=== PATIENT | female | born 1955 | race Caucasian/White ===

== ENCOUNTER 2019-08-31 08:45 | Outpatient (CLI) | payer BC, SELFPAY ==
--- NOTE | 2019-08-31 08:56 | MM_ITS ---
WS: [id number] BILATERAL SCREENING DIGITAL MAMMOGRAM WITH CAD HISTORY: SCREENING COMPARISON: 08/02/2018 and 07/29/2017 Bilateral CC and MLO views submitted. Computer aided detection analyzed. Breast composition: The breasts are heterogeneously dense, which may obscure small masses. No suspici ous masses, microcalcifications or architectural distortion. Benign lymph nodes in the LEFT breast ar e stable. No suspicious mass or calcification. MM/[id number] IMPRESSION: BI-RADS: 2-Benign FOLLOW UP: 1 Year Follow-up
== END 2019-08-31 08:46 | disposition home or self-care (01) ==
LOC: RADSHAW 08:55
PROVIDERS: Family Provider Electrodiagnostic Medicine; PCP Electrodiagnostic Medicine; Visit Provider Electrodiagnostic Medicine
DX: Z12.31 Encounter for screening mammogram for malignant neoplasm of breast (principal)
CPT/HCPCS: 77067

== ENCOUNTER 2020-10-21 08:44 | Outpatient (CLI) | payer MEDICARE, SELFPAY ==
--- NOTE | 2020-10-21 08:52 | MM_ITS ---
WS: [id number] BILATERAL DIGITAL SCREENING MAMMOGRAPHY WITH CAD CLINICAL INFORMATION: SCREENING HISTORY: Screening mammogram. No current complaints. COMPARISON: August 2019 TECHNIQUE: Bilateral CC and MLO views. FINDINGS: The breasts are composed of heterogeneous fibroglandular density tissue, which can limit the detectio n of small underlying mass lesions. No suspicious mass, asymmetry, calcifications, or architectural d istortion. No evidence of malignancy. Incidental intramammary lymph nodes left breast. MM/[place] [id number] IMPRESSION: BI-RADS: 2-Benign FOLLOW UP: 1 Year Follow-up Recommend return to annual screening mammography.
== END 2020-10-21 08:45 | disposition home or self-care (01) ==
LOC: RADSHAW 08:50
PROVIDERS: Family Provider Electrodiagnostic Medicine; PCP Electrodiagnostic Medicine; Visit Provider Electrodiagnostic Medicine
DX: Z12.31 Encounter for screening mammogram for malignant neoplasm of breast (principal)
CPT/HCPCS: 77067

== ENCOUNTER 2021-12-14 08:33 | Outpatient (CLI) | payer MEDICARE, SELFPAY ==
--- NOTE | 2021-12-14 08:45 | MM_ITS ---
WS: [id number] BILATERAL SCREENING DIGITAL BREAST TOMOSYNTHESIS MAMMOGRAM WITH CAD HISTORY: SCREENING COMPARISON: 10/21/2020 and 08/31/2019 Bilateral CC and MLO views with tomosynthesis and synthetic mammography submitted. Computer aided det ection analyzed. Breast composition: There are scattered areas of fibroglandular density. No suspicious masses, microc alcifications or architectural distortion. MM/[place] [id number] IMPRESSION: BI-RADS: 1-Negative FOLLOW UP: 1 Year Follow-up
== END 2021-12-14 08:34 | disposition home or self-care (01) ==
LOC: RAD 08:35
PROVIDERS: Family Provider Electrodiagnostic Medicine; PCP Electrodiagnostic Medicine; Visit Provider Electrodiagnostic Medicine
DX: Z12.31 Encounter for screening mammogram for malignant neoplasm of breast (principal)
CPT/HCPCS: 77063; 77067

== ENCOUNTER 2022-12-22 11:55 | Outpatient (CLI) | payer MEDICARE, SELFPAY ==
--- NOTE | 2022-12-22 12:09 | MM_ITS ---
WS: [id number] VIEWS: MLO and CC views both breasts. 3D digital tomosynthesis is also included in this exam. Comparison made with prior exam of 06/15/2016, 07/29/2017, 08/02/2018, 08/31/2019, 10/21/2020, 12/14/2021.. Findings: There was no sign of mass, architectural distortion or suspicious calcification in either breast. Th ere are scattered areas of fibroglandular density. MM/[place] [id number] Impression: BI-RADS: 2 Benign finding FOLLOW-UP: 1 Year Follow-up This mammogram was also analyzed by the Computer Aided Detection System R2 Imag e Employment Coach.
== END 2022-12-22 11:56 | disposition home or self-care (01) ==
PROVIDERS: PCP Electrodiagnostic Medicine; Visit Provider Electrodiagnostic Medicine
DX: Z12.31 Encounter for screening mammogram for malignant neoplasm of breast (principal)
CPT/HCPCS: 77063; 77067

== ENCOUNTER 2023-06-10 16:56 | Emergency (ER) | payer MEDICARE, SELFPAY ==
[2023-06-10 16:59] VITALS: BP 159/84; PULSE 89; RESP 18; TEMP 36.8; O2SAT 96; BMI 23.6
--- NOTE | 2023-06-10 17:54 | W.ED.GENADLT ---
HPI - General Adult General: Chief complaint: General Medical Stated complaint: Bp high Time Seen by Provider: 06/10/23 17:20 History of Present Illness: Patient is a 67-year-old female with a past medical history significant for osteoarthritis, hyperglycemia, and hyperlipidemia who presents to the emergency department for evaluation of high blood pressure. Patient reports that she has been monitoring her blood pressure over the last month. Patient states that today her blood pressure was reading 180/100 and then again later 203/100. Patient was evaluated by her primary care provider who started her on lisinopril 5 mg. Patient reports that she took her blood pressure medication this morning and her blood pressure in the emergency department reads 159/84. Patient currently denies headache, lightheadedness, dizziness, chest pain, shortness of breath, palpitations, cough, congestion, numbness, tingling, extremity weakness, visual disturbances, or any other associated symptoms. Patient is currently completely asymptomatic and is just concerned about her blood pressure. No other complaints at this time. Associated symptoms: Deny chest pain, confusion, dyspnea, headache(s), nausea, rash, palpitations, syncope or vomiting Review of Systems General: Reports: 10 or more systems reviewed and unremarkable except in HPI and below Const: Denies: fever(s), chills or body aches Eyes: Denies: change in vision, blurry vision, blind spots, eye discharge or eye redness ENMT: Denies: throat pain, hoarseness, nasal discharge or nasal congestion Card: Denies: chest pain, palpitations, lightheadedness, syncope or dyspnea on exertion Resp: Denies: dyspnea, productive cough, non-productive cough or wheezing GI: Denies: abdominal pain, nausea, vomiting, diarrhea or constipation : Denies: flank pain, dysuria, urinary urgency or hematuria Musc: Denies: neck pain or extremity pain Skin/Breast: Denies: rash Neuro: Denies: headache(s), numbness in extremities, dizziness, vertigo or confusion Psych: Denies: anxiety PFS ED PFSH: Medical History (Updated 06/10/23 @ 19:37 by BISHOP Rodriguez) Generalized osteoarthritis Hard of hearing Hyperglycemia Hyperlipidemia Surgical History (Updated 02/18/22 @ 10:37 by Jonathan Judge NP) No history of previous surgery Family History (Updated 02/18/22 @ 10:38 by Jonathan Judge NP) Mother Cancer, Onset Age: 60 Breast Father Cancer Colon Social History (Updated 02/18/22 @ 10:39 by Jonathan Judge NP) Smoking and tobacco/nicotine status: never used tobacco/nicotine Alcohol intake: current Alcohol intake frequency: holidays/special occasions only Physical Exam Const: COMMON NORMALS: no acute distress, average body habitus, patient oriented x3, no limitations and alert HENMT: COMMON NORMALS: normocephalic, atraumatic, hearing grossly normal bilaterally and moist oral mucous membranes HEAD & SCALP: normocephalic and atraumatic Eye: COMMON NORMALS: Equal, round and reactive pupils present, EOMs intact bilaterally and conjunctivae normal CONJUNCTIVA: Yes conjunctivae normal PUPIL: Yes Equal, round and reactive pupils present Neck/C-Spine: COMMON NORMALS: full ROM Chest: COMMONS NORMALS: normal inspection of the chest Resp: COMMON NORMALS: normal respiratory effort, No retractions, No use of accessory muscles and clear to auscultation bilaterally AUSCULTATION: clear to auscultation bilaterally Cardio: COMMON NORMALS: regular rate, regular rhythm, No gallops present (Cardio), No clicks present (Cardio), No murmurs present (Cardio) and No rub (Cardio) RATE: regular rate RHYTHM: regular rhythm GI: COMMON NORMALS: Normal to inspection, nondistended, normoactive bowel sounds present, Soft to palpation and non-tender PALPATION: Yes Soft to palpation Extremity: OTHER: Patient has full passive and active range of motion in the bilateral upper and lower extremities. Neuro: COMMON NORMALS: patient oriented x3 SENSORIUM/ORIENTATION: Yes alert OTHER: Sensation intact to the bilateral upper and lower extremities. Skin: COMMON NORMALS: no rashes or lesions noted GENERAL SKIN EXAM: no rashes or lesions noted Course Vital Signs: Vital signs: Vital Signs Temperature 98.3 F 06/10/23 16:59 Pulse Rate 60 06/10/23 19:13 Respiratory Rate 16 06/10/23 19:13 Blood Pressure 149/69 06/10/23 19:13 Pulse Oximetry 97 06/10/23 19:13 Oxygen Delivery Me thod Room Air 06/10/23 19:13 [facility] - General Adult Medical Decision Making Patient is a 67-year-old female with a past medical history significant for osteoarthritis, hyperglycemia, and hyperlipidemia who presents to the emergency department for evaluation of high blood pressure. On physical examination patient is nontoxic and in no acute distress. Vital signs remained stable throughout the ED course. Blood pressure remained normal in the emergency department. Patient is currently completely asymptomatic. Patient was asymptomatic throughout the day. EKG sinus rhythm with nonspecific ST changes. No prior EKG for comparison. Chest x-ray showed no acute cardiopulmonary pathology. Based off history and physical examination I do not believe the patient symptoms are emergent and warrant further emergent evaluation at this time. Patient was just started on lisinopril 5 mg today. Patient was informed that it will take some time for the lisinopril to lower her blood pressure. See handout over generalized instructions. Continue to take the lisinopril as prescribed. Increase oral hydration. Continue to monitor your blood pressure. Call your primary care provider tomorrow with an update of your symptoms and to schedule appointment for further management/evaluation. Return to the emergency department in the next 12 to 24 hours for any rapid or worsening symptoms to include but not limited to chest pain, shortness of breath, palpitations, lightheadedness, dizziness, headache, visual disturbances, extremity weakness, or as needed. I discussed patient's history, exam, and all findings with Dr. Forrest in the emergency department who agreed my assessment and plan. He did not feel the patient required admission or further evaluation at this time. Patient stated understanding of all discharge instructions and was agreeable to plan of care. Differential Diagnosis Differential diagnosis includes but is not limited to acute coronary syndrome, hypertensive urgency, hypertensive emergency, hypertensive encephalopathy Lab Data Radiology Impressions Chest X-Ray 06/10/23 18:01 IMPRESSION: No acute findings. All radiology interpretation(s) finalized by discharge Discharge Plan Discharge Patient Disposition: Home Clinical Impression: BP (high blood pressure) Condition: Stable Prescriptions: No Action Shingrix Adjuvant Component-PF Suspension 0.5 ml IM ONCE Qty: 0.5 1RF atorvastatin 40 mg tablet 40 mg PO DAILY Discharge Orders: Discharge ED (Routine); Ordered 06/10/23 Ordered By: Jorge Poole Referrals: Allan Herring DO [Primary Care Provider] - Patient Instructions: Hypertension (ED) Activity Restrictions/Additional Instructions: See handout over generalized instructions. Continue to take the lisinopril as prescribed. Increase oral hydration. Continue to monitor your blood pressure. Call your primary care provider tomorrow with an update of your symptoms and to schedule appointment for further management/evaluation. Return to the emergency department in the next 12 to 24 hours for any rapid or worsening symptoms to include but not limited to chest pain, shortness of breath, palpitations, lightheadedness, dizziness, headache, visual disturbances, extremity weakness, or as needed. Coding Level of Care Code ED Insights Strategist for Otilia Slaughter
--- NOTE | 2023-06-10 18:01 | XRR_ITS ---
PROCEDURE INFORMATION: Exam: XR Chest Exam date and time: 06/10/2023 6:02 PM Age: 67 years old Clinical indication: Other: Palpitations TECHNIQUE: Imaging protocol: Radiologic exam of the chest. Views: 1 view. COMPARISON: No relevant prior studies available. FINDINGS: Lungs: Unremarkable. No consolidation. Pleural spaces: Unremarkable. No pleural effusion. No pneumothorax. Heart/Mediastinum: Unremarkable. No cardiomegaly. Bones/joints: Unremarkable. XR/XR chest 1V portable [id number] IMPRESSION: No acute findings.
--- NOTE | 2023-06-10 18:01 | ECG_ITS ---
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 Measurements Intervals [place] Rate: 72 P: 43 KS: 156 QRS: -4 QRSD: 95 T: 217 QT: 430 QTc: 473 Interpretive Statements SINUS RHYTHM POSSIBLE LEFT ATRIAL ENLARGEMENT [-0.1mV P-WAVE IN V1/V2] INCOMPLETE RIGHT BUNDLE BRANCH BLOCK [90+ ms QRS DURATION, TERMINAL R IN V1/V2, 40+ ms S IN I/aVL/V4/V5/V6] LEFT VENTRICULAR HYPERTROPHY AND ST-T CHANGE [VOLTAGE CRITERIA PLUS ST/T ABNORMALITY] No previous ECG available for comparison Electronically Signed On 06-11-2023 15:15:09 CERTIFIED MEDICINE AIDE by Estefani Vidal M.D. [email or web address]
[2023-06-10 19:13] VITALS: BP 149/69; PULSE 60; RESP 16; O2SAT 97
== END 2023-06-10 19:40 | disposition home or self-care (01) ==
PROVIDERS: Emergency Provider Physician Assistant; PCP Electrodiagnostic Medicine
DX: I10 Essential (primary) hypertension (principal); E78.5 Hyperlipidemia, unspecified
CPT/HCPCS: 71045; 93005; 99284

== ENCOUNTER 2024-01-02 07:57 | Outpatient (CLI) | payer MEDICARE, SELFPAY ==
--- NOTE | 2024-01-02 08:03 | MM_ITS ---
WS: [id number] BILATERAL SCREENING DIGITAL TOMOSYNTHESIS MAMMOGRAM WITH CAD HISTORY: SCREENING COMPARISON: 12/22/2022, 12/14/2021 Bilateral CC and MLO views with tomosynthesis and synthetic mammography submitted. Computer aided det ection analyzed. Breast composition: There are scattered areas of fibroglandular density. No suspicious masses, microc alcifications or architectural distortion. Multiple small well rounded masses within each breast are stable and probably lymph nodes. No suspicious mass or calcification. MM/[place] [id number] IMPRESSION: BI-RADS: 2-Benign FOLLOW UP: 1 Year Follow-up
== END 2024-01-02 07:58 | disposition home or self-care (01) ==
LOC: RAD 07:57
PROVIDERS: PCP Electrodiagnostic Medicine; Visit Provider Electrodiagnostic Medicine
DX: Z12.31 Encounter for screening mammogram for malignant neoplasm of breast (principal); R92.323 Mammographic fibroglandular density, bilateral breasts
CPT/HCPCS: 77063; 77067

== ENCOUNTER 2025-01-02 14:15 | Outpatient (CLI) | payer MEDICARE, SELFPAY ==
--- NOTE | 2025-01-02 14:17 | MM_ITS ---
WS: [id number] BILATERAL 3D TOMOSYNTHESIS DIGITAL SCREENING MAMMOGRAPHY WITH CAD CLINICAL INFORMATION: SCREENING HISTORY: Screening mammogram. No current complaints. COMPARISON: 2023 TECHNIQUE: Bilateral CC and MLO views. FINDINGS: Scattered fibroglandular densities bilaterally. No suspicious focal mass, asymmetry, calcifications, or architectural distortion. No evidence of malignancy. MM/MM scr BI tomosynthesis [id number] IMPRESSION: DENSITY: There are scattered areas of fibroglandular density. BI-RADS: 1 - Negative. FOLLOW UP: 1 Year Follow-up Recommend return to annual screening mammography.
== END 2025-01-02 14:16 | disposition home or self-care (01) ==
LOC: RAD 14:17
PROVIDERS: PCP Electrodiagnostic Medicine; Visit Provider Electrodiagnostic Medicine
DX: Z12.31 Encounter for screening mammogram for malignant neoplasm of breast (principal); R92.323 Mammographic fibroglandular density, bilateral breasts
CPT/HCPCS: 77063; 77067

== ENCOUNTER 2025-05-03 10:52 | Inpatient (IN) | payer MEDICARE, SELFPAY ==
[2025-05-03] VITALS (12 sets, daily range): BP systolic 135–194; BP diastolic 77–100; PULSE 60–93; RESP 12–21; TEMP 36.4–37.1; O2SAT 91–100; BMI 23.2
--- NOTE | 2025-05-03 10:53 | XRR_ITS ---
PROCEDURE INFORMATION: Exam: XR Left Hip Exam date and time: 05/03/2025 11:04 AM Age: 69 years old Clinical indication: Injury or trauma; Fall; Blunt trauma (contusions or hematomas); Left; Hip; Additional info: L hip pain fall TECHNIQUE: Imaging protocol: Radiologic exam of the left hip. Views: 2 or 3 views hip with pelvis when performed. COMPARISON: CR XR hip LT 2-3V wo/w pel* [id number] 02/28/2025 12:58 PM FINDINGS: Bones/joints: There is an impacted intertrochanteric fracture of the left hip. There is a mottled somewhat mixed lytic pattern throughout the intertrochanteric region concerning for underlying bone lesion and pathologic fracture. The femoral heads are located. There is mild bilateral hip degenerative osteoarthritis. Pubic symphysis and SI joints are intact. Soft tissues: Unremarkable. XR/XR hip LT 2-3V wo/w pel* [id number] IMPRESSION: Impacted intertrochanteric fracture of the left hip with radiographic concern for underlying bone lesion and pathologic fracture. Consider follow-up CT for further characterization for possible bone lesion.
[2025-05-03] MEDS: fentaNYL 50 mcg/mL INJ 2mL IVP (11:02)
[2025-05-03] MEDS: HYDROmorphone 0.5 MG/0.5 ML INJ IVP ×2 (11:24→12:20)
--- NOTE | 2025-05-03 11:26 | ECG_ITS ---
[facility] Test Date: 2025-05-03 Pat Name: Cassy Culp Department: Room: Gender: Female Milk Tester: : 1955 Requested By: Hao Seals Order Number: [id number] Reading MD: ISABELL MCKEON Measurements Intervals [place] Rate: 64 P: 73 MD: 148 QRS: 21 QRSD: 89 T: -17 QT: 413 QTc: 428 Interpretive Statements SINUS RHYTHM POSSIBLE RIGHT VENTRICULAR CONDUCTION DELAY [RSR (QR) IN V1/V2] PROBABLE SEPTAL MYOCARDIAL INFARCTION , PROBABLY OLD [35 ms Q WAVE IN V1/V2] MODERATE T-WAVE ABNORMALITY, CONSIDER ANTEROLATERAL ISCHEMIA [-0.1+ mV T-WAVE IN V3-V6] Compared to ECG 06/10/2023 18:01:39 Myocardial infarct finding now present T-wave abnormality now present Possible ischemia now present Incomplete right bundle-branch block no longer present Left ventricular hypertrophy no longer present ST (T wave) deviation no longer present Electronically Signed On 05-05-2025 23:13:37 CDT by ISABELL MCKEON [email or web address]
--- NOTE | 2025-05-03 11:26 | XRR_ITS ---
PROCEDURE INFORMATION: Exam: XR Chest Exam date and time: 05/03/2025 11:24 AM Age: 69 years old Clinical indication: Cough and dyspnea; Lt hip pain post fall today; Additional info: Dyspnea/cough TECHNIQUE: Imaging protocol: Radiologic exam of the chest. Views: 1 view. COMPARISON: CR (CHEST, ) 06/10/2023 6:02 PM FINDINGS: Lungs: Unremarkable. No consolidation. Pleural spaces: Unremarkable. No pleural effusion. No pneumothorax. Heart/Mediastinum: Unremarkable. No cardiomegaly. Bones/joints: Unremarkable. XR/XR chest 1V portable [id number] IMPRESSION: No acute process or interval change
--- NOTE | 2025-05-03 11:34 | ED_ITS ---
HPI - Extremity Problem 2 General: Chief complaint: Extremity Injury, Lower Stated complaint: fall - left hip pain Time Seen by Provider: 05/03/25 10:53 History of Present Illness: 69-year-old female presents to the emerg ency room with complaints of left hip pain. Patient was at physical therapy and getting off a table and fell injured her left hip. She had pain with the hip previously. She denies any other injuries she is awake and alert. Denies chest pain shortness of breath or abdominal pain Associated symptoms: Deny chest pain, fever(s) or rash Related Data Home Medications ?Medication ?Instructions ?Recorded ?Confirmed lisinopril 2.5 mg tablet 2.5 mg PO DAILY 05/03/2505/18 Previous Rx's ?Medication ?Instructions ?Recorded atorvastatin 40 mg tablet 40 mg PO DAILY #90 tabs 01/15 Allergies Allergy/AdvReac Type Severity Reaction Status Date / Time No Known Allergies Allergy Unverified 08/16/23 10:33 Review of Systems 2 Const: Denies: fever(s) or chills Card: Denies: chest pain Resp: Denies: dyspnea GI: Denies: abdominal pain : Denies: dysuria, urinary frequency or urinary urgency Musc: Reports: joint pain; Denies: neck pain or back pain Skin/Breast: Denies: rash PFSH ED 2 PFSH: Medical History Generalized osteoarthritis Hard of hearing Hyperglycemia Hyperlipidemia Surgical History No history of previous surgery Family History Mother Cancer, Onset Age: 60 Breast Father Cancer Colon Social History Smoking and tobacco/nicotine status: never used tobacco/nicotine Alcohol intake: current Alcohol intake frequency: holidays/special occasions only Physical Exam 2 Const: GENERAL APPEARANCE: cooperative ORIENTATION/CONSCIOUSNESS: Yes awake, Yes oriented to person, Yes oriented to place and Yes oriented to time HENMT: COMMON NORMALS: normocephalic, atraumatic and hearing grossly normal bilaterally HEAD & SCALP: normocephalic and atraumatic Resp: COMMON NORMALS: normal respiratory effort, No retractions, No use of accessory muscles and clear to auscultation bilaterally AUSCULTATION: clear to auscultation bilaterally Cardio: COMMON NORMALS: regular rate, regular rhythm and No murmurs present (Cardio) RATE: regular rate RHYTHM: regular rhythm GI: COMMON NORMALS: Soft to palpation and No hepatosplenomegaly present A USCULTATION: Yes normoactive bowel sounds PALPATION: Yes Soft to palpation, No Tenderness to palpation present (GI), No Guarding due to palpation present (GI) and Yes No hepatosplenomegaly present Extremity: COMMON NORMALS: capillary refill normal, no clubbing, cyanosis or edema, no calf tenderness and no pedal edema OTHER: Shortening and external rotation of the left hip Neuro: SENSORIUM/ORIENTATION: Yes oriented to person, Yes oriented to place and Yes oriented to time Skin: COMMON NORMALS: no rashes or lesions noted GENERAL SKIN EXAM: no rashes or lesions noted Course 2 Vital Signs: Vital signs: Vital Signs Temperature 97.6 F 05/03/25 16:00 Pulse Rate 64 05/03/25 16:00 Respiratory Rate 21 H 05/03/25 18:06 Blood Pressure 173/80 05/03/25 16:00 Pulse Oximetry 94 05/03/25 18:06 Oxygen Delivery Me thod Room Air 05/03/25 16:00 MDM - Extremity (Nontraumatic) Medical Decision Making Comminuted left intertrochanteric hip fracture. Discussed with Dr. Ramirez will admit to hospitalist consult orthopedics. Her last meal was around [address] Gonzalez states he is planning on going doing surgery tomorrow. Medical Records I reviewed the patient's medical records. Lab Data 05/03/25 12:05 05/03/25 12:05 Radiology Impressions Hip/Pelvis X-Ray 05/03/25 10:53 IMPRESSION: Impacted intertrochanteric fracture of the left hip with radiographic concern for underlying bone lesion and pathologic fracture. Consider follow-up CT for further characterization for possible bone lesion. Chest X-Ray 05/03/25 11:26 IMPRESSION: No acute process or interval change Laboratory Results WBC 9.62 10^3/uL (3.29-11.43) 05/03/25 12:05 RBC 3.41 10^6/uL (3.85-5.65) L 10/10/25 12:05 Hgb 10.10 g/dL (11.27-16.99) L 05/03/25 12:05 Hct 31.8 % (36-47) L 05/03/25 12:05 MCV 93.3 fl (85-98) 05/03/25 12:05 MCH 29.6 pg (27-33) 05/03/25 12:05 MCHC 31.8 g/dL (30-55) 05/03/25 12:05 RDW 12.3 % (12.1-15.1) 05/03/25 12:05 Plt Count 356 10^3/cmm (157-399) 05/03/25 12:05 MPV 10.3 fL (7.4-10.4) 05/03/25 12:05 Neut % (Auto) 76.1 % 05/03/25 12:05 Lymph % (Auto) 17.4 % 05/03/25 12:05 [place] % (Auto) 4.3 % 05/03/25 12:05 Eos % (Auto) 0.5 % 05/03/25 12:05 Baso % (Auto) 0.8 % 05/03/25 12:05 Neut # (Auto) 7.32 10^3/uL (1.8-7.7) 05/03/25 12:05 Lymph # (Auto) 1.7 10^3/uL (0.8-4.8) 05/03/25 12:05 [place] # (Auto) 0.4 10^3/uL (0.2-0.9) 05/03/25 12:05 Eos # (Auto) 0.1 10^3/uL (0.0-0.8) 05/03/25 12:05 Baso # (Auto) 0.1 10^3/uL (0.0-0.1) 05/03/25 12:05 Nucleated RBC % (auto) 0 % 05/03/25 12:05 Nucleated RBCs # 0.0 /100WBC 05/03/25 12:05 Sodium 137 mmol/L (136-145) 05/03/25 12:05 Potassium 5.1 mmol/L (3.5-5.1) 05/03/25 12:05 Chloride 101 mmol/L (98-107) 05/03/25 12:05 Carbon Dioxide 22 mmol/L (22-29) 05/03/25 12:05 Anion Gap 19.1 (5-19) H 05/03/25 12:05 BUN 29 mg/dL (8-23) H 05/03/25 12:05 Creatinine 1.4 mg/dL (0.5-0.9) H 05/03/25 12:05 GFR Calculation Not Reportable 05/03/25 12:05 Glucose 195 mg/dL (65-115) H 05/03/25 12:05 Calculated Osmolality 295 mOsm/kg (285-295) 05/03/25 12:05 Calcium 9.1 mg/dL (8.5-10.5) 05/03/25 12:05 Total Bilirubin 0.3 mg/dL (0.15-1.2) 05/03/25 12:05 AST 50 U/L (0-32) H 05/03/25 12:05 ALT 36 U/L (0-33) H 05/03/25 12:05 Alkaline Phosphatase 240 U/L (35-105) H 05/03/25 12:05 Total Protein 7.5 g/dL (6.6-8.7) 05/03/25 12:05 Albumin 4.1 g/dL (3.5-5.2) 05/03/25 12:05 Globulin 3.4 g/dL (1.3-4.6) 05/03/25 12:05 Urine Color Yellow (Yellow) 05/03/25 11:38 Urine Appearance Clear (CLEAR) 05/03/25 11:38 Urine pH 5.5 (5-7) 05/03/25 11:38 Ur Specific [place] 1.011 (1.005-1.030) 05/03/25 11:38 Urine Protein Negative (Negative) 05/03/25 11:38 Urine Glucose (UA) Negative (Normal) 05/03/25 11:38 Urine Ketones Negative (Negative) 05/03/25 11:38 Urine Blood Negative (Negative) 05/03/25 11:38 Urine Nitrate Negative (Negative) 05/03/25 11:38 Urine Bilirubin Negative (Negative) 05/03/25 11:38 Urine Urobilinogen 0.2 mg/dL (Negative) 05/03/25 11:38 Ur Leukocyte Esterase Negative (Negative) 05/03/25 11:38 Amorphous Sediment Not Reportable 05/03/25 11:38 All radiology interpretation(s) finalized by discharge EKG Data EKG 1: I personally reviewed and interpreted this EKG as follows: EKG interpretation date: 05/03/25 Interpretation: EKG 05/03/2025 1136 sinus rhythm no acute ST changes. Rate of 64 NE interval 148 QTc 423. . Inverted T waves in V3 for 5 and 6. Compared to EKG 06/10/2023 no significant change same T wave inversion present on that EKG as well as T wave inversion at 2 3 and aVF. Discharge Plan Discharge Patient Disposition: Admitted As Inpatient Admit Provider: Alfonzo Mendes Clinical Impression: Fracture of hip Condition: Stable Coding Level of Care Code ED Fisher Trap for Otilia Slaughter
[2025-05-03 11:59] LABS: Add Urine Microscopic? NO
[2025-05-03 12:03] LABS: Glucose Urine UA Negative (Normal); Nitrate Urine Negative (Negative); Specific Gravity, Urine 1.011 (1.005-1.030)
[2025-05-03 12:05] LABS: Charge for UA Resulting for Rev
[2025-05-03 12:25] LABS: Hematocrit 31.8 % (36-47); Hemoglobin 10.10 g/dL (11.27-16.99); Mean Corpuscular HGB Conc 31.8 g/dL (30-55); Mean Corpuscular Hemoglobin 29.6 pg (27-33); Mean Corpuscular Volume 93.3 fl (85-98); Nucleated Red Blood Cells % 0 %; Platelet Count 356 10^3/cmm (157-399); Red Blood Count 3.41 10^6/uL (3.85-5.65); White Blood Count 9.62 10^3/uL (3.29-11.43)
[2025-05-03 12:39] LABS: Alanine Aminotransferase 36 U/L (0-33); Albumin Level 4.1 g/dL (3.5-5.2); Alkaline Phosphatase 240 U/L (35-105); Anion Gap 19.1 (5-19); Aspartate Amino Transferase 50 U/L (0-32); Blood Urea Nitrogen 29 mg/dL (8-23); Calcium 9.1 mg/dL (8.5-10.5); Carbon Dioxide 22 mmol/L (22-29); Chloride 101 mmol/L (98-107); Creatinine Clr Calc Pharmacy 28.4469; Globulin 3.4 g/dL (1.3-4.6); Glucose 195 mg/dL (65-115); Osmolality Calculated 295 mOsm/kg (285-295); Potassium 5.1 mmol/L (3.5-5.1); Sodium 137 mmol/L (136-145); Total Protein 7.5 g/dL (6.6-8.7)
[2025-05-03] MEDS: ondansetron 2 mg/ML SDV 2 mL 4 MG IVP (13:10)
[2025-05-03] MEDS: morphine 4 mg/mL SDV 1 mL IVP ×3 (13:10→22:12)
--- NOTE | 2025-05-03 15:21 | XRR_ITS ---
PROCEDURE INFORMATION: Exam: XR Left Femur Exam date and time: 05/03/2025 7:55 PM Age: 69 years old Clinical indication: Injury or trauma; Fall; Fracture, pathological; Hip; Left; Closed fracture; Additional info: Left hip fracture possibly pathologic TECHNIQUE: Imaging protocol: Radiologic exam of the left femur. Views: 2 views. COMPARISON: CT hip LT wo con* [id number] 05/03/2025 7:52 PM FINDINGS: Bones/joints: Acute angulated intertrochanteric fracture of the femur as described on the concurrent radiograph and CT. Subtle sclerosis and lytic changes of the fracture margins again noted. No additional fracture or focal osseous lesion Soft tissues: Unremarkable. XR/XR femur LT min 2V* [id number] IMPRESSION: Acute intertrochanteric fracture with subtle sclerosis and lytic changes, please refer to the concurrent CT. No additional fractures or other osseous lesions.
--- NOTE | 2025-05-03 15:21 | CTR_ITS ---
PROCEDURE INFORMATION: Exam: CT Left Lower Extremity Without Contrast, Hip Exam date and time: 05/03/2025 7:52 PM Age: 69 years old Clinical indication: Injury or trauma; Fall; Blunt trauma; Hip; Left; Additional info: Left intertrochanteric hip fracture possible malignancy TECHNIQUE: Imaging protocol: CT of the left lower extremity without contrast was performed. Exam focused on the hip. Radiation optimization: All CT scans at this facility use at least one of these dose optimization techniques: automated exposure control; mA and/or kV adjustment per patient size (includes targeted exams where dose is matched to clinical indication); or iterative reconstruction. COMPARISON: CR XR hip LT 2-3V wo/w pel* [id number] 05/03/2025 11:04 AM RADIATION DOSE METRICS: Total DLP (mGy-cm): 216.34 FINDINGS: Bones/joints: Diffuse osteopenia acute comminuted intertrochanteric fracture of the left femur with moderate angulation and impaction is noted. Ill-defined moth-eaten lytic appearance of the cortical margins and marrow space sclerosis, otherwise no discrete measurable lesion. No additional fracture. No hip dislocation. Soft tissues: Muscle strain/elongated ill-defined hematoma with muscle enlargement of the left iliopsoas from the inguinal region to the lesser trochanter. Additionally moderate contusive changes/hematoma around the fracture site with soft tissue edema extending to the proximal thigh and adductor compartment/ischiofemoral space. Reproductive: A complex left adnexal lesion predominantly cystic some wall thickening and suggestion of septations inferiorly measures up to 9.2 x 6.8 x 8.7 cm. Cox's catheter in the bladder likely accounting for small amount of air in the lumen. CT/CT hip LT wo con* [id number] IMPRESSION: 1. Acute comminuted impacted angulated intertrochanteric left femoral fracture. 2. Sclerosis of the marrow space and moth-eaten lytic appearance of the cortical margins highly suspicious for underlying infiltrative neoplastic etiology. 3. Large (9.2 x 6.8 x 0.7 cm) complex left adnexal/ovarian cystic mass, possibly a primary cystic neoplasm. Dedicated evaluation with contrast MR or sonography recommended.
[2025-05-03] MEDS: oxyCODONE 5 mg IR Tab/Cap PO ×2 (15:44→21:35)
--- NOTE | 2025-05-03 19:25 | P.HP_ITS ---
Providers/Chief Complaint 2 Admitting Physician: Alfonzo Mendes MD Primary Care Provider: Allan Herring DO Chief Complaint: fall - left hip pain History of Present Illness Cassy Culp is a 69 year old female has had minor left hip pain since November 2024 but more severe in the last month and seen by chiropractor. She was referred by chiropractor to do therapy and has been doing that for a month. Today she was finishing therapy on the table stood twisted felt and heard a pop and then had immediate left hip pain. She came to the emergency department where she is found to have a left intertrochanteric hip fracture. Patient states she had recent x-ray done at [facility] in the office by Dr. Dr. Herring. This showed mild osteoarthritis Patient denies history of malignancy. She states her last mammogram was 11/23/2024 last pelvic exam was in her 40s. She states she was low on estrogen and never got her period so was put on estrogen from age 16 to about 38. She was told that her pituitary did not work well. She states that she did develop breasts and pubic hair but was perhaps less than normal. Family history mom of breast cancer which extended to femur metastatic and at age 72 Dad of [place] age 81 but had colon cancer and coronary artery disease Sister Viv present at bedside had bilateral hip replacements hypertension lipids DJD the back but no cancer Sister Autumn had breast cancer in her 70s treated now has Alzheimer's Patient is was never able to have children has 2 step kids 1 of whom Fay Rodriguez she is close to and is present at bedside. Sister Viv automobile service writer also present at bedside broke his hip and currently at a retirement she has been attending to him and reports mild weight loss from poor p.o. 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 bleeding or discharge Neuro no seizures strokes limb weakness Heme no history of blood clots in legs or lungs Psych no depression or anxiety problems Medications/Allergies Home Medications ?Medication ?Instructions ?Recorded ?Confirmed ?Last Taken ?Type atorvastatin 40 mg tablet 40 mg PO DAILY #90 tabs 02/0 01/1505/03/25 05/02/25 Rx lisinopril 2.5 mg tablet 2.5 mg PO DAILY 05/03/2505/1805/03/25 History Allergies Allergy/AdvReac Type Severity Reaction Status Date / Time No Known Allergies Allergy Unverified 08/16/23 10:33 PFSH Acute 2 PFSH: Medical History (Updated 05/03/25 @ 19:38 by Alfonzo Mendes MD) BP (high blood pressure) Generalized osteoarthritis Hard of hearing Hyperglycemia Hyperlipidemia Surgical History No history of previous surgery Family History Mother Cancer, Onset Age: 60 Breast Father Cancer Colon Social History (Updated 05/03/25 @ 19:36 by Alfonzo Mendes MD) Smoking and tobacco/nicotine status: never used tobacco/nicotine Alcohol intake: current Alcohol intake frequency: holidays/special occasions only Alcohol use comment: Minimal Substance/Drug Use: never Additional social history: She is [employer] and does not want blood products even for surgery. She wants full code even for surgery. She wants full code as discussed today with Alfonzo Mendes MD on 05/03/2025. 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 Vitals/I&O/Wt Last Vital Signs Temp 97.6 F 05/03/25 16:00 Pulse 64 05/03/25 16:00 Resp 21 H 05/03/25 18:06 BP 173/80 05/03/25 16:00 Pulse Ox 94 05/03/25 18:06 O2 Del Method Room Air 05/03/25 16:00 05/03/25 05/03/25 05/03/25 06:59 14:59 22:59 Intake Total 1273.333 / 1273.333 Output Total 550 / 550 Balance 723.333 / 723.333 Weight last 48 hrs Weight 53.977 kg Weight 53.977 kg Physical Exam 2 Narrative: General well-developed well-nourished female thin stature no acute cardiopulmonary distress CV regular rate and rhythm Lungs clear to auscultation bilaterally Abdomen positive bowel tones soft nontender Calves no tenderness cords pretibial edema Breast exam performed in the presence of sister Viv no dominant masses no nipple retraction or skin indentation no nipple discharge no axillary adenopathy. Groin no femoral adenopathy Urinary Catheter Management: Cox: Cath Placed During This Visit: yes Reason for Continuing Indwelling Catheter: Accurate Measurement of Urinary Output in Critically Ill Patients Urinary Catheter Date of Insertion: 05/03/25 Urinary Catheter Time of Insertion: 11:59 Data 05/03/25 12:05 05/03/25 12:05 A&P Assessment and plan 1. Fracture, intertrochanteric, left femur: Plan for surgery in the morning with Dr. Ramirez but by story and appearance of the CT scan there is concern that this could be a pathologic fracture from cancer. 2. Abnormal x-ray of bone: There is trabeculated appearance to the bone on x-ray today and retrospectively from February to my eye we will proceed with CT scan of the hip and plain film of the left femur as discussed with Dr. Ramirez 3. Hyperlipidemia: Continue home med 4. BP (high blood pressure): Continue home med PDMP PDMP Reviewed: Not Reviewed Attestations 2 Medical Necessity Statement*: Patient admitted to the hospital for hip repair and we will require greater than 2 midnights Coding Level of Care Code Acute Code for [facility] Diagnoses Fracture, intertrochanteric, left femur S72.142A Abnormal x-ray of bone R93.7 Hyperlipidemia E78.5 BP (high blood pressure) I10 Time Spent (min) 70
--- NOTE | 2025-05-03 23:26 | PM.MISC ---
Miscellaneous Note Purpose of Documentation: Radiology called me to give report on patient imaging on hip fracture. See the important notes below Note: The hip fracture was thought to be pathological fracture from neoplastic process somewhere in patient's body. Furthermore radiologist indicated that patient has a large left ovarian mass which is suspicious to be malignant and quite related to patient pathological hip fracture please follow-up on this patient.
[2025-05-04] VITALS (27 sets, daily range): BP systolic 114–152; BP diastolic 61–91; PULSE 60–80; RESP 16–18; TEMP 36.6–37.1; O2SAT 90–100
[2025-05-04] MEDS: morphine 4 mg/mL SDV 1 mL IVP ×3 (02:14→20:18)
[2025-05-04 04:30] LABS: Hematocrit 32.3 % (36-47); Hemoglobin 10.50 g/dL (11.27-16.99); Mean Corpuscular HGB Conc 32.5 g/dL (30-55); Mean Corpuscular Hemoglobin 30.0 pg (27-33); Mean Corpuscular Volume 92.3 fl (85-98); Nucleated Red Blood Cells % 0 %; Platelet Count 332 10^3/cmm (157-399); Red Blood Count 3.50 10^6/uL (3.85-5.65); White Blood Count 12.29 10^3/uL (3.29-11.43)
[2025-05-04 04:59] LABS: Anion Gap 14.3 (5-19); Blood Urea Nitrogen 20 mg/dL (8-23); Calcium 8.7 mg/dL (8.5-10.5); Carbon Dioxide 27 mmol/L (22-29); Chloride 98 mmol/L (98-107); Glucose 154 mg/dL (65-115); Osmolality Calculated 286 mOsm/kg (285-295); Potassium 4.3 mmol/L (3.5-5.1); Sodium 135 mmol/L (136-145)
[2025-05-04 05:03] LABS: Creatinine Clr Calc Pharmacy 36.2051
--- NOTE | 2025-05-04 07:46 | P.CONIM_ITS ---
Providers/Reason For Consult 2 Consulting Physician/Specialty*: Hospitalist Reason for Consult*: Left hip fracture Attending Physician: Alfonzo Mendes MD Primary Care Provider: Allan Herring DO History of Present Illness History of Present Illness Cassy Culp is a 69 year old female has had minor left hip pain since November 2024 but more severe in the last month and seen by chiropractor. She was referred by chiropractor to do therapy and has been doing that for a month. Today she was finishing therapy on the table stood twisted felt and heard a pop and then had immediate left hip pain. Patient is also noted to have an ovarian mass on the CT scan. Will treat the fracture like it is a pathologic fracture. Will send the reamings for pathology Review of Systems 2 Const: Denies: fever(s) or chills Card: Denies: chest pain Resp: Denies: dyspnea GI: Denies: abdominal pain : Denies: dysuria, urinary frequency or urinary urgency Musc: Reports: joint pain; Denies: neck pain or back pain Skin/Breast: Denies: rash Medications/Allergies Home Medications ?Medication ?Instructions ?Recorded ?Confirmed ?Last Taken ?Type atorvastatin 40 mg tablet 40 mg PO DAILY #90 tabs 0201/1505/03/25 05/02/25 Rx lisinopril 2.5 mg tablet 2.5 mg PO DAILY 05/03/2505/1805/03/25 History Allergies Allergy/AdvReac Type Severity Reaction Status Date / Time No Known Allergies Allergy Unverified 08/16/23 10:33 Current Medications Generic Name Dose Route Start Last Admin Trade Name Freq PRN Reason Stop Dose Admin Sodium Chloride 1,000 mls @ 100 mls/hr 05/03/25 12:54 05/04/25 00:03 Sodium Chloride 0.9% IV Not Given .Q10H ZACH Morphine Sulfate 4 mg 05/03/25 12:54 05/04/25 02:14 Morphine 4 Mg/Ml Sdv 1 Ml IVP 4 mg Q4H PRN Administration SEVERE PAIN Ondansetron HCl 4 mg 05/03/25 12:54 05/03/25 13:10 Ondansetron 2 Mg/Ml Sdv 2 Ml IVP 4 mg Q6H PRN Administration NAUSEA AND VOMITING Oxycodone HCl 5 mg 05/03/25 15:21 05/03/25 21:35 Oxycodone 5 Mg Ir Tab/Cap PO 5 mg Q6H PRN Administration SEVERE PAIN PFSH Acute 2 PFSH: Medical History (Updated 05/03/25 @ 19:38 by Alfonzo Mendes MD) BP (high blood pressure) Generalized osteoarthritis Hard of hearing Hyperglycemia Hyperlipidemia Surgical History No history of previous surgery Family History Mother Cancer, Onset Age: 60 Breast Father Cancer Colon Social History (Updated 05/03/25 @ 19:36 by Alfonzo Mendes MD) Smoking and tobacco/nicotine status: never used tobacco/nicotine Alcohol intake: current Alcohol intake frequency: holidays/special occasions only Alcohol use comment: Minimal Substance/Drug Use: never Additional social history: 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 She wants full code even for surgery. She wants full code as discussed today with Alfonzo Mendes MD on 05/03/2025. 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 Vitals/I&O/Wt Last Vital Signs Temp 98.6 F 05/04/25 05:14 Pulse 70 05/04/25 05:14 Resp 16 05/04/25 05:14 BP 152/73 05/04/25 05:14 Pulse Ox 96 05/04/25 05:14 O2 Del Method Room Air 05/03/25 16:00 05/03/25 05/04/25 05/04/25 22:59 06:59 14:59 Intake Total 1273.333 / 1273.333 Output Total 550 / 550 1600 / 2150 Balance 723.333 / 723.333 -1600 / -876.667 Weight last 48 hrs Weight 119 lb Weight 119 lb Weight 119 lb Physical Exam 2 Narrative: Left leg shortened and externally rotated Alert and oriented x 3 Head is normocephalic atraumatic Respirations are intact No evidence of any rashes or infection 5/5 strength in bilateral upper and lowe r extremities Sensation intact in all extremities Urinary Catheter Management: Cox: Cath Placed During This Visit: yes Reason for Continuing Indwelling Catheter: Required Immobilization for Trauma or Surgery or Anesthesia Urinary Catheter Date of Insertion: 05/03/25 Urinary Catheter Time of Insertion: 11:59 Data 05/04/25 02:40 05/04/25 02:40 A&P Assessment and plan 1. Fracture of hip: Left intertrochanteric hip fracture possible pathologic fracture. For metastatic lesion. Plan to do a long intramedullary nail in send reamings for pathology. PDMP PDMP Reviewed: Not Reviewed Coding Level of Care Code Acute Code for [facility] Fwd Diagnoses Fracture of hip S72.009A
--- NOTE | 2025-05-04 07:49 | ANES.PREANE2 ---
Pre-Anesthetic Assessment Height/Weight: Height 1.52 m Weight 53.977 kg Temp Pulse Resp BP Pulse Ox O2 Del Method 98.6 F 70 16 152/73 96 Room Air 05/04/25 05:14 05/04/25 05:14 05/04/25 05:14 05/04/25 05:14 05/04/25 05:14 05/03/25 16:00 Preop Diagnosis: fractue femur Operation Date: 05/04/25 08:00 Proposed Procedures p Trochanteric Femoral Nail(Left) - Zheng Pan Ashley, DO Was Beta Apple taken within 24 hours: N/A Was Clonidine taken within 24 hours: N/A Last intake: Intake Last Liquid Date 05/03/25 Last Liquid Time 23:59 Last Solid Date 05/03/25 Last Solid Time 23:59 Last Intake: 23:00 Social No alcohol and No tobacco Exam alert and oriented x 3 Airway Submandibular: within normal limits Cervical ROM: within normal limits Mallampati: Class II Dentition: false History/ROS No significant history except as noted Pulmonary None reported CV/HEM None reported None reported Hepatic None reported GI None reported Metabolic None reported Musc/skel None reported Neuropsych None reported Anesthetic Plan ASA status: 2E Anesthesia: Anesthesia Evaluation Risk of > 500 ml blood loss (7ml/kg in children): No Medications/Allergies Home Medications ?Medication ?Instructions ?Recorded ?Confirmed ?Last Taken ?Type atorvastatin 40 mg tablet 40 mg PO DAILY #90 tabs 08/30/23 05/03/25 05/02/25 Rx lisinopril 2.5 mg tablet 2.5 mg PO DAILY 05/03/25 05/03/25 05/03/25 History Allergies Allergy/AdvReac Type Severity Reaction Status Date / Time No Known Allergies Allergy Unverified 08/16/23 10:33 Current Medications Generic Name Dose Route Start Last Admin Trade Name Freq PRN Reason Stop Dose Admin Sodium Chloride 1,000 mls @ 100 mls/hr 05/03/25 12:54 05/04/25 00:03 Sodium Chloride 0.9% IV Not Given .Q10H ZACH Morphine Sulfate 4 mg 05/03/25 12:54 05/04/25 02:14 Morphine 4 Mg/Ml Sdv 1 Ml IVP 4 mg Q4H PRN Administration SEVERE PAIN Ondansetron HCl 4 mg 05/03/25 12:54 05/03/25 13:10 Ondansetron 2 Mg/Ml Sdv 2 Ml IVP 4 mg Q6H PRN Administration NAUSEA AND VOMITING Oxycodone HCl 5 mg 05/03/25 15:21 05/03/25 21:35 Oxycodone 5 Mg Ir Tab/Cap PO 5 mg Q6H PRN Administration SEVERE PAIN PFSH Anesthesia Medical History (Updated 05/03/25 @ 19:38 by Alfonzo Mendes MD) BP (high blood pressure) Generalized osteoarthritis Hard of hearing Hyperglycemia Hyperlipidemia Surgical History No history of previous surgery Family History Mother Cancer, Onset Age: 60 Breast Father Cancer Colon Social History (Updated 05/03/25 @ 19:36 by Alfonzo Mendes MD) Smoking and tobacco/nicotine status: never used tobacco/nicotine Alcohol intake: current Alcohol intake frequency: holidays/special occasions only Alcohol use comment: Minimal Substance/Drug Use: never Additional social history: 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 She wants full code even for surgery. She wants full code as discussed today with Alfonzo Mendes MD on 05/03/2025. 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 Data Anesthesia 05/04/25 02:40 05/04/25 02:40 Short CBC 05/03/25 05/04/25 Range/Units 12:05 02:40 WBC 9.62 12.29 H (3.29-11.43) 10^3/uL Hgb 10.10 L 10.50 L (11.27-16.99) g/dL Hct 31.8 L 32.3 L (36-47) % MCV 93.3 92.3 (85-98) fl Plt Count 356 332 (157-399) 10^3/cmm Neut % (Auto) 76.1 76.0 % Neut # (Auto) 7.32 9.34 H (1.8-7.7) 10^3/uL BMP 05/03/25 05/04/25 12:05 02:40 Sodium 137 135 L Potassium 5.1 4.3 Chloride 101 98 Carbon Dioxide 22 27 BUN 29 H 20 Creatinine 1.4 H 1.1 H Glucose 195 H 154 H Calcium 9.1 8.7 Liver Function 05/03/25 Range/Units 12:05 Total Bilirubin 0.3 (0.15-1.2) mg/dL AST 50 H (0-32) U/L ALT 36 H (0-33) U/L Alkaline Phosphatase 240 H (35-105) U/L Albumin 4.1 (3.5-5.2) g/dL Urine 05/03/25 Range/Units 11:38 Urine Color Yellow (Yellow) Urine Appearance Clear (CLEAR) Urine pH 5.5 (5-7) Ur Specific [place] 1.011 (1.005-1.030) Urine Protein Negative (Negative) Urine Glucose (UA) Negative (Normal) Urine Ketones Negative (Negative) Urine Nitrate Negative (Negative) Urine Bilirubin Negative (Negative) Ur Leukocyte Esterase Negative (Negative)
[2025-05-04] MEDS: ceFAZolin 2,000 mg SDV 2000 MG IVP ×3 (08:12→23:36)
--- NOTE | 2025-05-04 09:20 | P.OP_ITS ---
Operative Report Date of procedure: May 04, 2025 Pre-op diagnosis: Left pathologic proximal femur fracture Post-op diagnosis: same Procedure done: Left long intramedullary nail of the femur. Surgeon: Zheng Ramirez DO Estimated blood loss (mL): 25 Procedure: Left long intramedullary nail of the femur. Patient is brought to the operative suite after undergoing anesthesia was placed in the supine position on the fracture table. All areas impingement well- padded. Patient's prepped and draped in normal sterile fashion. Traction was pulled to reduce the fracture. Skin incision made proximal to the greater trochanter. Starting pin was inserted. Opening reamer was inserted. Canal was reamed to 12-1/2. A size 11 x 340 nail was inserted. A wire was placed in the center center position through the nail into the femoral head. Measured to be 90 a size 90 lag screw was placed locked into position proximally. And then 2 screws were placed distally using perfect circles. A size 42-1/2 and a size 40 screw were placed. AP lateral fluoroscopy ensured that the fracture and h ardware in good position. Wounds were irrigated closed with Vicryl kell. Sterile dressings applied patient transferred to the PACU in stable condition.
[2025-05-04] MEDS: fentaNYL 50 mcg/mL INJ 2mL 100 MCG (09:24)
[2025-05-04] MEDS: fentaNYL 50 mcg/mL INJ 2mL IVP (09:35)
[2025-05-04] MEDS: acetaminophen 1,000 MG/100 ML PIGGYBACK 400 MG IV (10:03)
--- NOTE | 2025-05-04 10:20 | ANE.PACU2 ---
Inpatient post-anesthesia follow up: Airway intact: Yes Vital signs: Temperature 98.3 F Pulse Rate 90 Respiratory Rate 16 Blood Pressure 120/66 Pulse Oximetry 94 Oxygen Delivery Me thod Nasal Cannula Oxygen Flow Rate 2 Fraction of Inspir ed Oxygen Hydration adequate: Yes Nausea and vomiting: No Pain level: 1 Mental status: Baseline
[2025-05-04] MEDS: oxyCODONE 5 mg IR Tab/Cap PO ×3 (11:20→23:35)
--- NOTE | 2025-05-04 11:49 | P.PN_ITS ---
Subjective 2 Subjective: 69-year-old female with CT of the hip evaluating possible malignancy in the fracture found to have a left ovarian mass 9.2 x 6.8 x 0.7 cm. The bone had a moth-eaten lytic appearance. Patient had repair with a long intramedullary nail Vitals/I&O/Wt Last Vital Signs Temp 98.8 F 05/04/25 10:10 Pulse 72 05/04/25 10:10 Resp 16 05/04/25 11:20 BP 123/68 05/04/25 10:10 Pulse Ox 92 05/04/25 10:10 O2 Del Method Nasal Cannula 05/04/25 10:10 O2 Flow Rate 3 05/04/25 10:10 05/03/25 05/04/25 05/04/25 22:59 06:59 14:59 Intake Total 1273.333 / 1273.333 384 / 384 Output Total 550 / 550 1600 / 2150 300 / 300 Balance 723.333 / 723.333 -1600 / -876.667 84 / 84 Weight last 48 hrs Weight 53.977 kg Weight 53.977 kg Weight 53.977 kg Physical Exam 2 Narrative: General well-developed well-nourished female thin stature no acute cardiopulmonary distress CV regular rate and rhythm. Mildly hyperdynamic sounds this morning Lungs clear to auscultation bilaterally Abdomen positive bowel tones soft nontender no palpable pelvic mass on external exam Calves no tenderness cords pretibial edema Urinary Catheter Management: Cox: Cath Placed During This Visit: yes Reason for Continuing Indwelling Catheter: Required Immobilization for Trauma or Surgery or Anesthesia Urinary Catheter Date of Insertion: 05/03/25 Urinary Catheter Time of Insertion: 11:59 Data 05/04/25 02:40 05/04/25 02:40 A&P Assessment and plan 1. Fracture, intertrochanteric, left femur: Surgery completed this morning Dr. Ramirez but by story and appearance of the CT scan there is concern that this could be a pathologic fracture from cancer. Additionally there is a left ovarian mass. I spoke with Dr. Ramirez who tells me the bone was abnormal at the time of surgery and sent the bone off for pathology 2. Abnormal x-ray of bone: There is trabeculated appearance to the bone on x-ray today and retrospectively from February to my eye we will proceed with CT scan of the hip and plain film of the left femur as discussed with Dr. Ramirez. 3. Mixed hyperlipidemia: Continue home med 4. BP (high blood pressure): Continue home med 5. Ovarian mass, left: Given the bone abnormality and ovarian mass I spoke with Dr. Chery who offered to see the patient in the hospital. I am going to order an MRI with contrast as he suggested to better characterize the the possibility of cancer. PDMP PDMP Reviewed: Not Reviewed Attestations 2 Medical Necessity Statement*: Patient has ovarian mass and abnormal left femur bone with intertrochanteric fracture repaired requiring MRI of the ovary and physical therapy with anticipated placement at [facility] on Tuesday Coding Level of Care Code [facility] Diagnoses Fracture, intertrochanteric, left femur S72.142A Abnormal x-ray of bone R93.7 Mixed hyperlipidemia E78.2 Hyperlipidemia type: mixed hyperlipidemia BP (high blood pressure) I10 Ovarian mass, left N83.8 Time Spent (min) 45
--- NOTE | 2025-05-04 14:31 | XRR_ITS ---
PROCEDURE INFORMATION: Exam: XR Left Femur Exam date and time: 05/04/2025 8:47 AM Age: 69 years old Clinical indication: Device placement; Other: Lt troch nail; Prior surgery; Surgery date: Post-operative (0-2 days); Additional info: Lt troch nail; Or pics TECHNIQUE: Imaging protocol: Radiologic exam of the left femur. Views: 2 views. COMPARISON: CR (LOW EXM, ) 05/03/2025 7:55 PM FINDINGS: Bones/joints: Femur surgical hardware appears to be in place. Soft tissues: Unremarkable. XR/XR femur LT min 2V* [id number] IMPRESSION: Femur surgical hardware appears to be in place.
[2025-05-05] VITALS (12 sets, daily range): BP systolic 108–145; BP diastolic 62–73; PULSE 77–92; RESP 16–18; TEMP 36.7–37.2; O2SAT 91–94
[2025-05-05 04:38] LABS: Hematocrit 25.9 % (36-47); Hemoglobin 8.40 g/dL (11.27-16.99); Mean Corpuscular HGB Conc 32.4 g/dL (30-55); Mean Corpuscular Hemoglobin 29.9 pg (27-33); Mean Corpuscular Volume 92.2 fl (85-98); Nucleated Red Blood Cells % 0 %; Platelet Count 234 10^3/cmm (157-399); Red Blood Count 2.81 10^6/uL (3.85-5.65); White Blood Count 15.22 10^3/uL (3.29-11.43)
[2025-05-05 05:03] LABS: Anion Gap 13.8 (5-19); Blood Urea Nitrogen 16 mg/dL (8-23); Calcium 7.6 mg/dL (8.5-10.5); Carbon Dioxide 23 mmol/L (22-29); Chloride 104 mmol/L (98-107); Glucose 117 mg/dL (65-115); Osmolality Calculated 284 mOsm/kg (285-295); Potassium 4.8 mmol/L (3.5-5.1); Sodium 136 mmol/L (136-145)
[2025-05-05 05:04] LABS: Creatinine Clr Calc Pharmacy 36.2051
[2025-05-05] MEDS: oxyCODONE 5 mg IR Tab/Cap PO ×3 (05:45→18:46)
[2025-05-05] MEDS: ceFAZolin 2,000 mg SDV 2000 MG IVP (07:45)
[2025-05-05] MEDS: APIXABAN 2.5 MG TABLET PO (09:44)
--- NOTE | 2025-05-05 10:06 | P.PN_ITS ---
Subjective 2 Subjective: Patient is in bed family is around her pain seems to be controlled. She has not been out of bed yet. Vitals/I&O/Wt Last Vital Signs Temp 98.2 F 05/05/25 08:13 Pulse 86 05/05/25 08:13 Resp 17 05/05/25 08:13 BP 114/62 05/05/25 08:13 Pulse Ox 93 05/05/25 08:13 O2 Del Method Nasal Cannula 05/05/25 08:13 O2 Flow Rate 3 05/05/25 07:36 05/04/25 05/05/25 05/05/25 22:59 06:59 14:59 Intake Total 527.167 / 1271.167 956.667 / 2227.834 240 / 240 Output Total 250 / 850 Balance 277.167 / 421.167 956.667 / 1377.834 240 / 240 Weight last 48 hrs Weight 127 lb 3.2 oz Weight 119 lb Weight 119 lb Weight 119 lb Physical Exam 2 Narrative: Dressing clean dry and intact Urinary Catheter Management: Cox: Cath Placed During This Visit: yes Reason for Continuing Indwelling Catheter: Perioperative Use in Selected Surgeries Urinary Catheter Date of Insertion: 05/03/25 Urinary Catheter Time of Insertion: 11:59 Data 05/05/25 04:19 05/05/25 04:19 A&P Assessment and plan 1. Fracture, intertrochanteric, left femur: Postop day #1 left hip nail Up with therapy Eliquis for DVT prophylaxis PDMP PDMP Reviewed: Not Reviewed Attestations 2 Medical Necessity Statement*: Per primary service Coding Level of Care Code Acute Code for [facility] Diagnoses Fracture, intertrochanteric, left femur S72.142A
[2025-05-05] MEDS: morphine 4 mg/mL SDV 1 mL IVP ×2 (11:11→16:06)
--- NOTE | 2025-05-05 12:10 | PM.OBGYCN ---
Providers/Reason for Consult Consulting Physican/Specialty*: Cody Chery MD, Clinical Research Specialist Reason for Consult*: pelvic mass Requesting Physcian: Dr. Toño Mendes Attending Physician: Pastora Garcia MD Primary Care Provider: Allan Herring DO KNIT TUBING DYER Consult HPI History of Present Illness Cassy Culp is a 69 year old female G0 Admitted by hospitalist service on May 03, 2025 for left hip fracture Still has uterus and ovaries Had CT scan of hip done May 03, 2025 Fracture of left femur 9.2 cm left adnexal mass Consultation was made to Clinical Research Specialist for left adnexal mass on CT scan No c/o pelvic pain No bleeding / spotting x many years Eating well Medications/Allergies Home Medications ?Medication ?Instructions ?Recorded ?Confirmed ?Last Taken ?Type atorvastatin 40 mg tablet 40 mg PO DAILY #90 tabs 08/30/23 05/03/25 05/02/25 Rx lisinopril 2.5 mg tablet 2.5 mg PO DAILY 05/03/25 05/03/25 05/03/25 History Allergies Allergy/AdvReac Type Severity Reaction Status Date / Time No Known Allergies Allergy Unverified 08/16/23 10:33 Current Medications Generic Name Dose Route Start Last Admin Trade Name Freq PRN Reason Stop Dose Admin Apixaban 2.5 mg 05/05/25 09:45 05/05/25 09:44 Apixaban 2.5 Mg Tablet PO 2.5 mg On Hold: 05/05/25 10:23 BID@0900,2100 ZACH Administration Atorvastatin Calcium 40 mg 05/04/25 05:00 05/06/25 05:23 Atorvastatin 40 Mg Tablet PO 40 mg DAILY ZACH Administration Ceftriaxone Sodium 1,000 mg 05/06/25 17:30 05/06/25 17:57 Ceftriaxone 1,000 Mg Sdv IVP 1,000 mg Q24H ZACH Administration Protocol Docusate Sodium 200 mg 05/05/25 17:00 05/06/25 17:21 Docusate Sodium 100 Mg Capsule PO 200 mg BID ZACH Administration Lisinopril 10 mg 05/04/25 05:00 05/06/25 05:23 Lisinopril 2.5 Mg Tablet PO 10 mg DAILY ZACH Administration Morphine Sulfate 2 mg 05/05/25 17:31 05/06/25 15:59 Morphine 4 Mg/Ml Sdv 1 Ml IVP 2 mg Q4H PRN Administration SEVERE PAIN Ondansetron HCl 4 mg 05/03/25 12:54 05/03/25 13:10 Ondansetron 2 Mg/Ml Sdv 2 Ml IVP 4 mg Q6H PRN Administration NAUSEA AND VOMITING Oxycodone HCl 5 mg 05/05/25 17:30 05/06/25 19:22 Oxycodone 5 Mg Ir Tab/Cap PO 5 mg Q6H PRN Administration MODERATE PAIN Polyethylene Glycol 17 gm 05/06/25 05:00 05/06/25 05:25 Polyethylene Glycol 3350 Pkt 17 Gm PO 17 gm DAILY ZACH Administration PFSH KNIT TUBING DYER PFSH: Medical History (Updated 05/04/25 @ 11:59 by Alfonzo Mendes MD) Ovarian mass, left BP (high blood pressure) Generalized osteoarthritis Hard of hearing Hyperglycemia Hyperlipidemia Surgical History No history of previous surgery Family History Mother Cancer, Onset Age: 60 Breast Father Cancer Colon Social History (Updated 05/03/25 @ 19:36 by Alfonzo Mendes MD) Smoking and tobacco/nicotine status: never used tobacco/nicotine Alcohol intake: current Alcohol intake frequency: holidays/special occasions only Alcohol use comment: Minimal Substance/Drug Use: never Additional social history: She is Gnosticist and does not want blood products even for surgery. She wants full code even for surgery. She wants full code as discussed today with Alfonzo Mendes MD on 05/03/2025. 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 General comfortable, awake, alert, appropriate Abd: soft, nontender Urinary Catheter Management: Cox: Cath Placed During This Visit: yes, but has since been removed by the nurse Reason for Continuing Indwelling Catheter: Perioperative Use in Selected Surgeries Urinary Catheter Date of Insertion: 05/03/25 Urinary Catheter Time of Insertion: 11:59 Date Urinary Catheter Removed: 05/06/25 Time Urinary Catheter Discontinued: 06:12 Data 05/06/25 02:50 05/06/25 02:50 A&P Assessment and plan 1. Ovarian mass, left: Left adnexal mass on CT scan of hip Recommend MRI of pelvis with contrast for better delineation of pelvic mass PDMP PDMP Reviewed: Not Reviewed Consult Attestations Medical Necessity Statement: 69 y.o. with adnexal mass Coding Level of Care Code Acute Code for Chg Fwd Diagnoses Ovarian mass, left N83.8
--- NOTE | 2025-05-05 13:49 | P.PN_ITS ---
Subjective 2 Subjective: Patient is in bed family and RT Eddie is starting her incentive spirometry patient's sister Vvi is present at bedside. Patient denies dysuria she has a Cox catheter in place. She states her hip hurts some when moved but otherwise feels fine patient hide shortness of breath and cough. Vitals/I&O/Wt Last Vital Signs Temp 98.6 F 05/05/25 12:07 Pulse 81 05/05/25 12:07 Resp 16 05/05/25 12:55 BP 124/70 05/05/25 12:07 Pulse Ox 94 05/05/25 12:55 O2 Del Method Nasal Cannula 05/05/25 08:13 O2 Flow Rate 3 05/05/25 07:36 05/04/25 05/05/25 05/05/25 22:59 06:59 14:59 Intake Total 527.167 / 1271.167 956.667 / 2227.834 1446.667 / 1446.667 Output Total 250 / 850 600 / 600 Balance 277.167 / 421.167 956.667 / 1377.834 846.667 / 846.667 Weight last 48 hrs Weight 57.697 kg Weight 53.977 kg Physical Exam 2 Narrative: General well-developed well-nourished female thin stature no acute cardiopulmonary distress CV regular rate and rhythm. Mildly hyperdynamic sounds Lungs clear to auscultation bilaterally Abdomen positive bowel tones soft nontender no palpable pelvic mass on external exam Calves no tenderness cords pretibial edema Left hip is swollen compared to the right. No overt ecchymosis. Cox catheter in place with very light yellow urine Urinary Catheter Management: Cox: Cath Placed During This Visit: yes Reason for Continuing Indwelling Catheter: Perioperative Use in Selected Surgeries Urinary Catheter Date of Insertion: 05/03/25 Urinary Catheter Time of Insertion: 11:59 Data 05/05/25 04:19 05/05/25 04:19 A&P Assessment and plan 1. Fracture, intertrochanteric, left femur: Surgery completed on 05/04/2025. We are awaiting pathology on the bone reamings. I spoke with Dr. Ramirez who tells me the bone was abnormal at the time of surgery and sent the bone off for pathology. Patient has chosen [facility] but awaiting insurance authorization. due drop in hct will hold apixaban overnight due to elevated wbc. start incentive spirometry and repeat lab. 2. Ovarian mass, left: Given the bone abnormality and ovarian mass I spoke with Dr. Chery who offered to see the patient in the hospital. I am going to order an MRI with contrast as he suggested to better characterize the the possibility of cancer. MRI could not be completed yesterday and may not be available till Tuesday. 3. Mixed hyperlipidemia: Continue home med 4. BP (high blood pressure): Continue home med PDMP PDMP Reviewed: Not Reviewed Attestations 2 Medical Necessity Statement*: pt remains in the hospital for therapy and stabilization of hct. need MRI before transfer to [facility] and will be here overnight. Coding Level of Care Code Acute Code for [facility] Diagnoses Fracture, intertrochanteric, left femur S72.142A Ovarian mass, left N83.8 Mixed hyperlipidemia E78.2 Hyperlipidemia type: mixed hyperlipidemia BP (high blood pressure) I10
[2025-05-06] VITALS (9 sets, daily range): BP systolic 111–131; BP diastolic 64–70; PULSE 83–95; RESP 16–18; TEMP 36.7–37.6; O2SAT 94–97
[2025-05-06 04:12] LABS: Hematocrit 24.8 % (36-47); Hemoglobin 7.90 g/dL (11.27-16.99); Mean Corpuscular HGB Conc 31.9 g/dL (30-55); Mean Corpuscular Hemoglobin 30.2 pg (27-33); Mean Corpuscular Volume 94.7 fl (85-98); Nucleated Red Blood Cells % 0 %; Platelet Count 225 10^3/cmm (157-399); Red Blood Count 2.62 10^6/uL (3.85-5.65); White Blood Count 15.37 10^3/uL (3.29-11.43)
[2025-05-06 04:38] LABS: Anion Gap 14.0 (5-19); Blood Urea Nitrogen 19 mg/dL (8-23); Calcium 7.9 mg/dL (8.5-10.5); Carbon Dioxide 21 mmol/L (22-29); Chloride 105 mmol/L (98-107); Glucose 105 mg/dL (65-115); Osmolality Calculated 285 mOsm/kg (285-295); Potassium 4.0 mmol/L (3.5-5.1); Sodium 136 mmol/L (136-145)
[2025-05-06 04:39] LABS: Creatinine Clr Calc Pharmacy 34.4813
[2025-05-06] MEDS: polyethylene glycol 3350 Pkt 17 gm PO (05:25)
[2025-05-06] MEDS: oxyCODONE 5 mg IR Tab/Cap PO ×3 (05:26→19:22)
--- NOTE | 2025-05-06 09:27 | PC.CHAP ---
Pastoral Care Encounter/Spiritual Assessment Type of Contact [] Declined market director visit [] Patient/Family/Request visit [] Outpatient visit [] Follow-up visit [] Physician referral [] Code/Alert [x] Routine visit [] Staff referral [] Actively dying [] Patient sleeping [x] Family support [] [] Out of room [] Palliative care [] [] Receiving care in room [] Pre-surgical visit [] Trauma [] Long length of stay [] ICU visit [] Other: Relational/Emotional Strength [] Patient feels connected with others/family/visitors/staff [] Distress [] Loneliness/isolation [] Abandonment Spirituality of Patient [x] Person of [place] [] Attends Oriental Orthodox of their [place] [x] Believes in Prayer [] Reads Bible or Hindu materials [] There are Spiritual issues to be addressed Hand Engraver Interventions [x] Prayer [x] Active listening [] Non-anxious presence [] Spiritual/emotional support [] Crisis/trauma care [] Spiritual counseling [] Bereavement support [] Provided bereavement packet [x] Provided Bible/devotional materials [] Provided toy/stuffed animal, coloring book to patient or family member [] Provided Communion [] Anointing/[place] [] Salvation [x] Completed spiritual assessment [] Other: Impact on Illness or Injury [] Angry [] Fearful [] Anxious [] Often cries [] Exhaustion [] Unable to work [] Unable to attend rastafarian [] Unable to walk/stand [] Unable to read [] Unable to drive [] Unable to eat/drink [] Unable to sleep [] Unable to be with family [] Patient intubated [] Other: Summary Time spent with patient 5 min
--- NOTE | 2025-05-06 10:11 | PC.SOCIAL ---
IMM Update pg 2 of IMM Updated and reviewed w/ patient. Copy provided and copy dated, initialed and placed in chart.
[2025-05-06] MEDS: morphine 4 mg/mL SDV 1 mL 2 MG IVP ×2 (10:59→15:59)
--- NOTE | 2025-05-06 15:27 | PM.PN ---
Subjective Subjective: Denies any new complaints today. Pain is currently controlled. Medications: Reviewed: Yes Vitals/I&O/Wt Last Vital Signs Temp 98.3 F 05/06/25 11:32 Pulse 90 05/06/25 11:32 Resp 16 05/06/25 13:00 BP 120/66 05/06/25 11:32 Pulse Ox 94 05/06/25 11:32 O2 Del Method Nasal Cannula 05/06/25 11:32 O2 Flow Rate 2 05/05/25 19:44 05/06/25 05/06/25 05/06/25 06:59 14:59 22:59 Intake Total 240 / 2626.667 840 / 840 Output Total 550 / 1600 Balance -310 / 1026.667 840 / 840 Weight last 48 hrs Weight 58.74 kg Weight 57.697 kg Physical Exam Narrative: General: No acute distress, AO x3 HEENT: PERRLA, pupils bilaterally equal and reactive, pallors not present Chest: Normal vesicular breath sounds, no added sounds, equal good air entry bilaterally CVS: S1-S2 regular, no murmurs, no tachycardia, no gallops, no rubs Abdomen: Soft, nontender, no organomegaly, bowel sounds present Neuro: No focal deficits, no facial deformity, AO x3, power 5/5 in all limbs Extremities: No edema clubbing or cyanosis Urinary Catheter Management: Cox: Cath Placed During This Visit: yes, but has since been removed by the nurse Reason for Continuing Indwelling Catheter: Perioperative Use in Selected Surgeries Urinary Catheter Date of Insertion: 05/03/25 Urinary Catheter Time of Insertion: 11:59 Date Urinary Catheter Removed: 05/06/25 Time Urinary Catheter Discontinued: 06:12 Data 05/06/25 02:50 05/06/25 02:50 A&P Assessment and plan 1. Fracture, intertrochanteric, left femur: Surgery completed on 05/04/2025. We are awaiting pathology on the bone reamings. I spoke with Dr. Ramirez who tells me the bone was abnormal at the time of surgery and sent the bone off for pathology. Patient has chosen [facility] but awaiting insurance authorization. due drop in hct will hold apixaban overnight due to elevated wbc. start incentive spirometry and repeat lab. 2. Ovarian mass, left: Given the bone abnormality and ovarian mass I spoke with Dr. Chery who offered to see the patient in the hospital. I am going to order an MRI with contrast as he suggested to better characterize the the possibility of cancer. MRI could not be completed yesterday and may not be available till Tuesday. 3. Mixed hyperlipidemia: Continue home med 4. BP (high blood pressure): Continue home med Plan: May 06, 2025 Chart reviewed. 69-year-old lady with a past medical history of left hip pain since November 2024, was visiting with a chiropractor when on a recent therapy session she felt her left hip pop. X-ray was done and she was found to have a left femur intertrochanteric fracture which appeared to be pathological. She underwent placement of a left long intramedullary nail into the femur for surgical fixation. Pain is well-controlled postoperatively. She was incidentally noted to have a left ovarian mass measuring 9.2 x 6.8 x 0.7 cm raising suspicion for malignancy. She has been ordered for an MRI pelvis which is expected to be completed today. Pathology from the bone is pending.She has been afberile. WBC count has increased from 9 on admission to 15.3. Noted to have mildly elevated AST/ALT, ALP at 240. Cause of leukocytosis is not certain at this time. Chest x-ray did not show any consolidation. Urine analysis without signs of overt infection. Will obtain blood culture and Ruq USG. Check hepatitis screen. Patient has not had any abdominal imaging so far. With cr at 1.1-1.4 with unknown baseline, will need renal imaging, however Will await results of MRI pelvis as already ordered.. Monitor off antibiotics for now as no localizing signs or symptoms of infection. Continue PT OT. PDMP PDMP Reviewed: Not Reviewed Attestations Medical Necessity Statement*: Pending MRI, RUQ as abive, recheck LFT Coding Level of Care Code Acute Code for Chg Fwd Diagnoses Fracture, intertrochanteric, left femur S72.142A Ovarian mass, left N83.8 Mixed hyperlipidemia E78.2 Hyperlipidemia type: mixed hyperlipidemia BP (high blood pressure) I10
--- NOTE | 2025-05-06 15:42 | USR_ITS ---
PROCEDURE INFORMATION: Exam: US Duplex Artery and Vein of the Abdominal and/or Reproductive Organs. Complete Liver Exam date and time: 05/06/2025 3:58 PM Age: 69 years old Clinical indication: Abnormal findings; Abnormal lab test; Elevated liver enzymes; Additional info: Transaminitis TECHNIQUE: Imaging protocol: Real-time duplex ultrasound scan of the arterial and venous flow with color Doppler flow and spectral waveform analysis with image documentation. Complete duplex exam focused on the liver and portal vein. Duplex exam was performed to evaluate for vascular conditions. Total images: 57 COMPARISON: 1. CT hip LT wo con* [id number] 05/03/2025 7:52 PM 2. CR XR hip LT 2-3V wo/w pel* [id number] 05/03/2025 11:04 AM FINDINGS: Portal venous: Main portal vein 0.5 cm diameter. Hepatopetal portal vein flow 44 cm/sec. Doppler Perfusion Index: Not calculated Hepatic veins: Patent. PROCEDURE INFORMATION: Exam: US Abdomen; Limited Exam date and time: 05/06/2025 3:58 PM Age: 69 years old Clinical indication: Abnormal findings; Abnormal lab test; Elevated liver enzymes; Additional info: Transaminitis TECHNIQUE: Imaging protocol: Real time ultrasound of the abdomen with image documentation. Limited exam focused on the region of clinical interest. COMPARISON: CT hip LT wo con* [id number] 05/03/2025 7:52 PM FINDINGS: Limitations: Patient unable to properly position and role due to recent hip surgery. Gallbladder: Gallbladder wall thickness 0.2 cm. Gallbladder appears normal; nondistended, thin wall, no stones, no pericholecystic fluid/stranding. Biliary ducts: Common bile duct (CBD) measures 2 mm diameter. Right kidney: Right kidney is atrophic size with thin cortex measuring 7.7 cm maximum longitudinal dimension (55.5 mL volume). Right kidney pelvicaliectasis possibly representing chronic hydronephrosis or vesicoureteral reflux. Portal venous: Main portal vein 0.5 cm diameter. US/US liver [id number] IMPRESSION: Unremarkable duplex of the portal vein. IMPRESSION: 1. No biliary dilatation or manifestations of gallbladder disease. 2. Right kidney of atrophic size demonstrating pelvicaliectasis, possibly representing chronic sequelae of hydronephrosis or vesicoureteral reflux.
--- NOTE | 2025-05-06 17:19 | XRR_ITS ---
PROCEDURE INFORMATION: Exam: XR Chest Exam date and time: 05/06/2025 6:00 PM Age: 69 years old Clinical indication: Shortness of breath; Additional info: Assess for pneumonia TECHNIQUE: Imaging protocol: Radiologic exam of the chest. Views: 1 view. Total images: 295 COMPARISON: 1. CR XR chest 1V portable [id number] 05/03/2025 11:24 AM 2. CR (CHEST, ) 06/10/2023 6:02 PM FINDINGS: Lungs: Left base streaky linear opacities characteristic of atelectasis or postinflammatory parenchymal scarring. No focal alveolar lung consolidation. Pleural spaces: No significant pleural effusion. No pneumothorax. Heart/Mediastinum: Normal heart size. Vasculature: Moderate ectasia descending thoracic aorta. Mild aortic atherosclerotic calcification. Bones/joints: Mild generalized degenerative changes of the vertebral column characterized primarily by multilevel osteophyte formation, and degenerative facet arthrosis commensurate with patient's age. Shoulder glenohumeral osteoarthritis. Qualitative demineralization of bones (osteopenia) limiting evaluation for nondisplaced fractures. Soft tissues: Soft tissues are normal as visualized, demonstrating no masses or induration. XR/XR chest 1V portable [id number] IMPRESSION: 1. New left base streaky linear opacities favoring atelectasis compared with recent prior chest x-ray 05/03/2025. 2. No lung consolidation appreciated. 3. No pleural effusion. 4. Mild skeletal degenerative and other chronic/non-acute findings as described above. COMMENTS: Qualitative demineralization of bones (osteopenia) limiting evaluation for nondisplaced fractures.
[2025-05-06] MEDS: cefTRIAXone 1,000 mg SDV 1000 MG IVP (17:57)
[2025-05-06 23:06] LABS: Glucose Urine UA Negative (Normal); Nitrate Urine Negative (Negative); Specific Gravity, Urine 1.012 (1.005-1.030)
[2025-05-06 23:19] LABS: Add Urine Microscopic? YES; UA Slide Review UA Slide Review Perf
[2025-05-07] VITALS (13 sets, daily range): BP systolic 116–135; BP diastolic 56–77; PULSE 81–108; RESP 16–18; TEMP 36.4–36.7; O2SAT 92–97
[2025-05-07] MEDS: oxyCODONE 5 mg IR Tab/Cap PO ×3 (01:25→17:00)
[2025-05-07] MEDS: polyethylene glycol 3350 Pkt 17 gm PO (04:20)
[2025-05-07 04:44] LABS: Hematocrit 23.7 % (36-47); Hemoglobin 7.50 g/dL (11.27-16.99); Mean Corpuscular HGB Conc 31.6 g/dL (30-55); Mean Corpuscular Hemoglobin 29.8 pg (27-33); Mean Corpuscular Volume 94.0 fl (85-98); Nucleated Red Blood Cells % 0 %; Platelet Count 281 10^3/cmm (157-399); Red Blood Count 2.52 10^6/uL (3.85-5.65); White Blood Count 14.50 10^3/uL (3.29-11.43)
[2025-05-07 05:01] LABS: Alanine Aminotransferase 32 U/L (0-33); Albumin Level 2.7 g/dL (3.5-5.2); Alkaline Phosphatase 363 U/L (35-105); Anion Gap 13.8 (5-19); Aspartate Amino Transferase 82 U/L (0-32); Blood Urea Nitrogen 22 mg/dL (8-23); Calcium 8.5 mg/dL (8.5-10.5); Carbon Dioxide 24 mmol/L (22-29); Chloride 105 mmol/L (98-107); Creatinine Clr Calc Pharmacy 37.6160; Globulin 2.9 g/dL (1.3-4.6); Glucose 118 mg/dL (65-115); Osmolality Calculated 290 mOsm/kg (285-295); Potassium 4.8 mmol/L (3.5-5.1); Sodium 138 mmol/L (136-145); Total Protein 5.6 g/dL (6.6-8.7)
[2025-05-07 05:27] LABS: Hepatitis A Antibody IgM Non-Reactive (Nonreactive); Hepatitis B Surface Antigen Non-Reactive (Nonreactive)
--- NOTE | 2025-05-07 10:23 | CTR_ITS ---
PROCEDURE INFORMATION: Exam: CT Chest Without Contrast; Diagnostic Exam date and time: 05/07/2025 8:01 PM Age: 69 years old Clinical indication: Injury or trauma; Other: Surgery on 05/03; Swelling; Prior surgery; Surgery date: 3-7 days post-operative; Surgery type: Total hip replacement; Additional info: ? Ilipsoas hematoma, ilipsoas hematoma vs contusion on CT hip from 05/03. TECHNIQUE: Imaging protocol: Diagnostic computed tomography of the chest without contrast. Radiation optimization: All CT scans at this facility use at least one of these dose optimization techniques: automated exposure control; mA and/or kV adjustment per patient size (includes targeted exams where dose is matched to clinical indication); or iterative reconstruction. COMPARISON: CR (CHEST, ) 05/06/2025 6:00 PM RADIATION DOSE METRICS: Total DLP (mGy-cm): 689.23 FINDINGS: Lungs: Jackpot to be dependent atelectasis. No consolidation. No masses. Pleural spaces: Unremarkable. No pneumothorax. No pleural effusion. Heart: Heart size within normal limits. Prominent calcification mitral valve annulus.. Lymph nodes: Unremarkable. No enlarged lymph nodes. Vasculature: Mild ectasia. No aortic aneurysm. Bones/joints: Mild degenerative changes thoracic spine. Soft tissues: Unremarkable. PROCEDURE INFORMATION: Exam: CT Abdomen And Pelvis Without Contrast Exam date and time: 05/07/2025 8:01 PM Age: 69 years old Clinical indication: Injury or trauma; Other: Surgery on 05/03; Swelling; Prior surgery; Surgery date: 3-7 days post-operative; Surgery type: Total hip replacement; Additional info: ? Ilipsoas hematoma, ilipsoas hematoma vs contusion on CT hip from 05/03. TECHNIQUE: Imaging protocol: Computed tomography of the abdomen and pelvis without contrast. Radiation optimization: All CT scans at this facility use at least one of these dose optimization techniques: automated exposure control; mA and/or kV adjustment per patient size (includes targeted exams where dose is matched to clinical indication); or iterative reconstruction. COMPARISON: CR XR hip LT 2-wo/w pel* [id number] 05/03/2025 11:04 AM RADIATION DOSE METRICS: Total DLP (mGy-cm): 689.23 FINDINGS: Liver: Normal. No mass. Gallbladder and biliary ducts: Normal. No calcified stones. No ductal dilation. Pancreas: Mild atrophic changes. Spleen: Normal. No splenomegaly. Adrenal glands: Normal. No mass. Kidneys and ureters: Smaller cyst right kidney. Marked probably longstanding right hydronephrosis and right hydroureter some cortical thinning. Milder left hydronephrosis and left hydroureter. Ureters are distended to the UV junction. However this area poorly seen because the cystic lesion left ovary and uterus on the right. Distension maybe due to distended urinary bladder but strictures can not be excluded. There is a 1.9 cm left renal cyst containing a small calcification. This represents a Bosniak 2 cysts. Benign Bosniak II renal cyst requiring no follow-up. (Reference: Jesus) References: Jesus GIBSON, et al. Bosniak Classification of Cystic Renal Masses, Version 2019: An Update Proposal and Needs Assessment. Radiology. 2019;292(2):475-488. Stomach and bowel: Stomach contains partially digested food stuff fundus and body. No wall thickening. Small bowel not significantly distended. If shows no significant wall thickening. It contains multiple small air-fluid levels may represent some stasis. Moderate amount stool in the colon without wall thickening, distension or surrounding stranding. Correlate for symptoms of constipation. Appendix: No evidence of appendicitis. Intraperitoneal space: Some mesenteric stranding between transverse colon and small bowel. This could be on an inflammatory basis. Can not rule out omental caking which can be seen with malignancy. Vasculature: Mild atherosclerosis.. No abdominal aortic aneurysm. Lymph nodes: Unremarkable. No enlarged lymph nodes. Urinary bladder: Moderately distended urinary bladder. Small focus of air seen anteriorly in the urinary bladder. Has there been instrumentation question Reproductive: Uterus unremarkable. There is a mildly heterogeneous thin walled mass left ovary measuring 6.1 cm short axis by 9 cm long axis. This has a CT number of 15.1 HU.. Further characterization by ultrasound recommended. Bones/joints: Recent internal reduction and fixation comminuted intratrochanteric fracture left femur. Helical screw and intramedullary maxine present. [id number] degenerative changes of the lumbar spine. Soft tissues: Hematoma with enlargement of the left iliopsoas muscle extending into the left psoas muscle and inferiorly proximal thigh. This measures a proximally 4 cm AP diameter by 6.1 cm transverse. Also enlargement of the left quadratus femoris extending extending inferiorly into the thigh. This measures 4 cm AP diameter by 0.2 cm in transverse diameter. Hematoma extends into the left gluteus muscles measuring 10.2 cm AP diameter by 5.8 cm in transverse diameter. Foci of air seen within the hematomas. Also foci of air seen within the adductors. Stranding within the overlying subcutaneous fat. CT/[place] [id number] IMPRESSION: 1. Jackpot to be mild dependent atelectasis. No definite consolidation. 2. Prominent calcification mitral valve annulus. 3. Mild sclerosis. 4. Degenerative changes thoracic spine. IMPRESSION: 1. Recent internal fixation and reduction comminuted intratrochanteric fracture of the left femur. 2. Hematomas left iliopsoas muscle, left gluteus muscles, and left quadratus femoris muscle. 3. Marked right hydronephrosis and right hydroureter with cortical thinning of the right kidney. Milder left hydronephrosis and hydroureter left kidney. Moderately distended urinary bladder. The right and left UV junction poorly seen due to uterus on the right and ovarian cystic lesion on the left. It is not known if there are strictures at the UV junction or this is due to chronic distension of the bladder. 4. Some mesenteric stranding between transverse colon and small bowel. This may represent some edema or inflammation. Can not entirely rule omental caking as can be associated with malignancy. 5. Mildly heterogeneous probable cystic lesion involving the left ovary. Nonemergent ultrasound recommended for further characterization. 6. Moderate amount of stool throughout colon. Correlate for symptoms of constipation. Maybe some stasis of small bowel.
--- NOTE | 2025-05-07 10:23 | US_ITS ---
WS: [id number] US transvaginal [id number] ULTRASOUND TRANSABDOMINAL HISTORY: left ovarian mass COMPARISON: CT hip 05/03/2025 Uterus: 4.9 cm x 2.8 cm x 2.1 cm. Small caliber anteverted uterus. Endometrium: Not well visualized. There is a large complex, heterogeneous mass in the LEFT adnexa. This mass is best seen on transabdominal imaging as it is slightly elevated from the adnexa. There is distortion on an overly distended urinary bladder. This mass corresponds to the finding on the recent CT. There are both cystic and solid components of this mass. Mass measures 8.8 x 7.0 x 7.9 cm. There are some features suggesting there may be hemorrhagic component. There is no increased vascularity. RIGHT ovary is not identified. US/US pelvis lmt w transvag IMPRESSION: 1. O-RADS 4; intermediate risk for malignancy. MRI is pending. 2. Large complex cystic and solid mass in the LEFT adnexa. Several features wi thin this mass suggest there is a hemorrhagic component. No vein increased vasc ularity is identified. In a postmenopausal female of this age neoplasm needs to be excluded and is likely. If there is a hemorrhagic component underlying mass is still a concern. MRI will help determine if there is a solid enhancing comp onent. 3. [place] distended urinary bladder. Recommend emptying of the urinary bladder prior to MRI of the pelvis.
--- NOTE | 2025-05-07 10:28 | ECG_ITS ---
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 Measurements Intervals [place] Rate: 104 P: 49 NH: 134 QRS: -7 QRSD: 87 T: 118 QT: 324 QTc: 427 Interpretive Statements SINUS TACHYCARDIA POSSIBLE LEFT ATRIAL ENLARGEMENT [-0.1mV P-WAVE IN V1/V2] LEFT VENTRICULAR HYPERTROPHY AND ST-T CHANGE [VOLTAGE CRITERIA PLUS ST/T ABNORMALITY] Compared to ECG 05/03/2025 11:36:58 Left ventricular hypertrophy now present ST (T wave) deviation now present Sinus rhythm no longer present Myocardial infarct finding no longer present T-wave abnormality no longer present Possible ischemia no longer present Electronically Signed On 05-15-2025 23:05:32 CDT by sEtefani Vidal M.D. [email or web address]
--- NOTE | 2025-05-07 10:28 | USCV_ITS ---
Cassy Culp Age: 69 Gender: F : 1955 Exam Date: 05/07/2025 12:20 Ordering Phys: Pastora Garcia MD Technologist: PRISCILA Exam Location: [facility] [place] Indication: cp sob BP: 130 / 70 HR: 93 Rhythm: Sinus Technical Quality: Adequate MEASUREMENTS (Male / Female) Normal Values 2D ECHO LV Diastolic Diameter PLAX 3.9 cm 4.2 - 5.9 / 3.9 - 5.3 cm IVS Diastolic Thickness 1.1 cm 0.6 - 1.0 / 0.6 - 0.9 cm IVS Systolic Thickness 0.9 cm LVPW Diastolic Thickness 1.1 cm 0.6 - 1.0 / 0.6 - 0.9 cm LVPW Systolic Thickness 1.3 cm LVOT Diameter 2.0 cm LV Ejection Fraction 2D Teich 38.6 % LV Ejection Fraction MOD 4C 66.8 % LV Ejection Fraction MOD 2C 55.1 % LV Ejection Fraction 2C AL 56.8 % LA Diameter 2.9 cm RA Systolic Volume 4C AL 22.2 ml RA Systolic Volume 4C MOD 21.4 ml Aorta at Sinotubular Diameter 2.5 cm IVC Diameter 0.9 cm DOPPLER AV Peak Velocity 177.7 cm/s LVOT Peak Velocity 150.0 cm/s AV Area Cont Eq vti 3.1 cm squared AV Area Cont Eq pk 2.8 cm squared MV Peak Velocity 140.0 cm/s MV Area PHT 4.5 cm squared Mitral E to A Ratio 0.6 TV Peak Velocity 286.5 cm/s TR Peak Velocity 305.0 cm/s TR Peak Gradient 37.2 mmHg TV Peak E Velocity 86.0 cm/s PV Peak Velocity 127.0 cm/s FINDINGS Left Ventricle Mild left ventricular hypertrophy. Normal left ventricular size and systolic function, EF 57% . Indeterminate left ventricular diastolic function due to severe mitral annular calcification. Right Ventricle Normal right ventricular size and systolic function. Mild pulmonary hypertension, RVSP 41 mmHg. Right Atrium Normal right atrial size. Left Atrium Normal left atrial size. IA Septum Normal appearance of the interatrial septum. Mitral Valve Severe mitral annular calcification. Mild mitral valve regurgitation. Very mild mitral valve stenosis with mean PG 2.2 mmHg at HR of 98 bpm. Aortic Valve No aortic valve stenosis. No aortic valve regurgitation. Aortic valve not well visualized. Tricuspid Valve Mild tricuspid valve regurgitation. Pulmonic Valve No pulmonary valve stenosis. No pulmonary valve regurgitation. Pericardium No pericardial effusion. Aorta Normal size aortic root and proximal ascending aorta. IVC Normal inferior vena cava. CONCLUSIONS 1. Mild left ventricular hypertrophy. Normal left ventricular size and systolic function, EF 57% . Indeterminate left ventricular diastolic function due to severe mitral annular calcification. 2. Normal right ventricular size and systolic function. 3. Mild pulmonary hypertension, RVSP 41 mmHg. 4. Severe mitral annular calcification. Mild mitral valve regurgitation. Very mild mitral valve stenosis with mean PG 2.2 mmHg at HR of 98 bpm. Rasheed Clifton MD, FACC (Electronically Signed) Final Date: 08 May 2025 17:42 S
--- NOTE | 2025-05-07 10:30 | P.PN_ITS ---
Subjective 2 Subjective: Patient is doing well having some pain but doing okay. Vitals/I&O/Wt Last Vital Signs Temp 97.6 F 05/07/25 07:56 Pulse 108 H 05/07/25 07:57 Resp 18 05/07/25 08:28 BP 135/67 05/07/25 07:56 Pulse Ox 97 05/07/25 07:57 O2 Del Method Nasal Cannula 05/07/25 07:57 O2 Flow Rate 2 05/07/25 07:57 05/06/25 05/07/25 05/07/25 22:59 06:59 14:59 Intake Total 240 / 1080 480 / 480 Output Total 250 / 250 200 / 450 0 / 0 Balance - -200 / 630 480 / 480 Weight last 48 hrs Weight 132 lb Weight 129 lb 8 oz Physical Exam 2 Narrative: Wound clean dry and intact Urinary Catheter Management: Cox: Cath Placed During This Visit: yes, but has since been removed by the nurse Reason for Continuing Indwelling Catheter: Perioperative Use in Selected Surgeries Urinary Catheter Date of Insertion: 05/03/25 Urinary Catheter Time of Insertion: 11:59 Date Urinary Catheter Removed: 05/06/25 Time Urinary Catheter Discontinued: 06:12 Data 05/07/25 04:29 05/07/25 04:29 Micro: Microbiology 05/07/25 04:34 Blood Culture - Preliminary Blood SPECIMEN COLLECTED 05/07/25 04:29 Blood Culture - Preliminary Blood SPECIMEN COLLECTED A&P Assessment and plan 1. Fracture, intertrochanteric, left femur: Status post left hip nail Discharge planning PDMP PDMP Reviewed: Not Reviewed Attestations 2 Medical Necessity Statement*: Per primary service Coding Level of Care Code Acute Code for [facility] Fwd Diagnoses Fracture, intertrochanteric, left femur S72.142A
[2025-05-07 11:03] LABS: Ferritin 672 ng/mL (15-150); Iron 16 ug/dL (37-145); Total Iron Binding Capacity 104 mcg/dl; Transferrin 87 mg/dL (200-360); Unsaturated Iron Binding 88 ug/dL (112-347)
[2025-05-07 11:19] LABS: Vitamin B12 588 pg/mL (232-1245)
[2025-05-07] MEDS: morphine 4 mg/mL SDV 1 mL 2 MG IVP ×2 (13:12→20:35)
--- NOTE | 2025-05-07 13:50 | P.PN_ITS ---
Subjective 2 Subjective: Patient is continuing to have a leukocytosis of 14,000. Hemoglobin dropped to 7.5 today.Tmax 99.6. Medications: Reviewed: Yes Vitals/I&O/Wt Last Vital Signs Temp 97.9 F 05/07/25 11:34 Pulse 107 H 05/07/25 11:34 Resp 18 05/07/25 13:12 BP 125/77 05/07/25 11:34 Pulse Ox 96 05/07/25 11:34 O2 Del Method Room Air 05/07/25 11:21 O2 Flow Rate 2 05/07/25 07:57 05/06/25 05/07/25 05/07/25 22:59 06:59 14:59 Intake Total 240 / 1080 480 / 480 Output Total 250 / 250 200 / 450 0 / 0 Balance - -200 / 630 480 / 480 Weight last 48 hrs Weight 59.874 kg Weight 58.74 kg Physical Exam 2 Narrative: General: No acute distress, AO x3 HEENT: PERRLA, pupils bilaterally equal and reactive, pallors not present Chest: Normal vesicular breath sounds, no added sounds, equal good air entry bilaterally CVS: S1-S2 regular, no murmurs, no tachycardia, no gallops, no rubs Abdomen: Soft, nontender, no organomegaly, bowel sounds present Neuro: No focal deficits, no facial deformity, AO x3, power 5/5 in all limbs Extremities: No edema clubbing or cyanosis Urinary Catheter Management: Cox: Cath Placed During This Visit: yes, but has since been removed by the nurse Reason for Continuing Indwelling Catheter: Perioperative Use in Selected Surgeries Urinary Catheter Date of Insertion: 05/03/25 Urinary Catheter Time of Insertion: 11:59 Date Urinary Catheter Removed: 05/06/25 Time Urinary Catheter Discontinued: 06:12 Data 05/07/25 04:29 05/07/25 04:29 Micro: Microbiology 05/07/25 04:34 Blood Culture - Preliminary Blood SPECIMEN COLLECTED 05/07/25 04:29 Blood Culture - Preliminary Blood SPECIMEN COLLECTED A&P Assessment and plan 1. Fracture, intertrochanteric, left femur: Surgery completed on 05/04/2025. We are awaiting pathology on the bone reamings. I spoke with Dr. Ramirez who tells me the bone was abnormal at the time of surgery and sent the bone off for pathology. Patient has chosen [facility] but awaiting insurance authorization. due drop in hct will hold apixaban overnight due to elevated wbc. start incentive spirometry and repeat lab. 2. Ovarian mass, left: Given the bone abnormality and ovarian mass I spoke with Dr. Chery who offered to see the patient in the hospital. I am going to order an MRI with contrast as he suggested to better characterize the the possibility of cancer. MRI could not be completed yesterday and may not be available till Tuesday. 3. Mixed hyperlipidemia: Continue home med 4. BP (high blood pressure): Continue home med Plan: May 06, 2025 Chart reviewed. 69-year-old lady with a past medical history of left hip pain since November 2024, was visiting with a chiropractor when on a recent therapy session she felt her left hip pop. X-ray was done and she was found to have a left femur intertrochanteric fracture which appeared to be pathological. She underwent placement of a left long intramedullary nail into the femur for surgical fixation. Pain is well-controlled postoperatively. She was incidentally noted to have a left ovarian mass measuring 9.2 x 6.8 x 0.7 cm raising suspicion for malignancy. She has been ordered for an MRI pelvis which is expected to be completed today. Pathology from the bone is pending.She has been afberile. WBC count has increased from 9 on admission to 15.3. Noted to have mildly elevated AST/ALT, ALP at 240. Cause of leukocytosis is not certain at this time. Chest x-ray did not show any consolidation. Urine analysis without signs of overt infection. Will obtain blood culture and Ruq USG. Check hepatitis screen. Patient has not had any abdominal imaging so far. With cr at 1.1-1.4 with unknown baseline, will need renal imaging, however Will await results of MRI pelvis as already ordered.. Monitor off antibiotics for now as no localizing signs or symptoms of infection. Continue PT OT. May 07, 2025 Tmax 99.6 Fahrenheit. Persisting leukocytosis at 14,000. Predominant neutrophilia 11.43. Hemoglobin at 7.5. While all of these may be postoperative changes, in reviewing CT of the hip taken upon admission on 05/03/2025 note was made of an ill-defined hematoma with muscle enlargement of the left iliopsoas muscle from the inguinal region to the lesser trochanter. Additionally contusive changes/hematoma was noted around the fracture site extending into the adductor compartment and ischiofemoral space. Will obtain CT of the abdomen and pelvis to follow-up on the hematoma given following hemoglobin. Additionally with persisting leukocytosis would be concerned about potential abscess in this area. Liver ultrasound yesterday did not show any obvious liver or biliary abnormalities, however did make a note of right kidney being atrophic, demonstrating pelvic calyectasis thought to represent sequelae of hydronephrosis or vesicoureteral reflux. Patient denies any known history of the same. Will obtain CT of the abdomen and pelvis to further assess for any extrinsic ureteric compression. MRI of the abdomen and pelvis has been unable to be obtained since 05/04/2025. Will defer this to outpatient after discussion with AUTOMATION/CONTROLS MANAGER. For now we will proceed with CT abdomen as noted above and will also obtain transvaginal ultrasound. EKG given noted tachycardia. Check FOBT, iron profile, b12 and folate levels. Newly discovered holosystolic murmur on exam. Will obtain echocardiogram. PDMP PDMP Reviewed: Not Reviewed Attestations 2 Medical Necessity Statement*: Persisting leukocytosis, low-grade fever, source under evaluation Coding Level of Care Code Acute Code for [facility] Fwd Diagnoses Fracture, intertrochanteric, left femur S72.142A Ovarian mass, left N83.8 Mixed hyperlipidemia E78.2 Hyperlipidemia type: mixed hyperlipidemia BP (high blood pressure) I10
--- NOTE | 2025-05-07 16:58 | PC.OT ---
Attempted skilled OT treatment. Pt recently returned to bed after toileting. Pt c/o of pain and discomfort with dressing on wound site. Nursing attending to wound dressing. Pt verbally requested to postpone OT tx until tomorrow due to increasing pain.
[2025-05-07] MEDS: cefTRIAXone 1,000 mg SDV 1000 MG IVP (17:01)
[2025-05-08 04:00] VITALS: BP 126/72; PULSE 98; RESP 17; TEMP 36.6; O2SAT 94
[2025-05-08] MEDS: polyethylene glycol 3350 Pkt 17 gm PO (04:35)
[2025-05-08 05:59] VITALS: BP 149/73; RESP 16
[2025-05-08] MEDS: oxyCODONE 5 mg IR Tab/Cap PO ×2 (05:59→13:08)
[2025-05-08 06:55] VITALS: BP 145/68; PULSE 83; RESP 16; TEMP 36.8; O2SAT 95
[2025-05-08 08:26] LABS: SARS Covid-2 Antigen Negative (Negative)
--- NOTE | 2025-05-08 09:06 | PC.SOCIAL ---
IMM Update pg 2 of IMM Updated and reviewed w/ patient. Copy provided and copy dated, initialed and placed in chart.
[2025-05-08 11:32] VITALS: BP 152/78; PULSE 92; RESP 16; TEMP 36.5; O2SAT 97
--- NOTE | 2025-05-08 12:38 | PC.NURSE ---
This nurse called report to INGRID Campos at [facility] at 1236. Their transport will be headed this way to get pt shortly.
[2025-05-08 13:08] VITALS: RESP 18
[2025-05-08 13:58] VITALS: BP 152/78; PULSE 92; O2SAT 97
--- NOTE | 2025-05-08 15:59 | P.DS_ITS ---
Discharge Providers Date of Admission: 05/03/25 12:53 Date of Discharge: May 08, 2025 Attending Provider at Admission: Alfonzo Mendes MD Attending Provider at Discharge: Pastora Garcia MD Primary Care Provider: Allan Herring DO Diagnoses at Discharge Discharge Diagnosis 1. Fracture, intertrochanteric, left femur: 2. Ovarian mass, left: 3. Mixed hyperlipidemia: 4. BP (high blood pressure): 5. Bilateral hydronephrosis: 6. Iliopsoas muscle hematoma: Reason for Visit Reason for Visit: fall - left hip pain Hospital Course Hospital Course 69-year-old lady with a past medical history of left hip pain since November 2024, was visiting with a chiropractor when on a recent therapy session she felt her left hip pop. X-ray was done and she was found to have a left femur intertrochanteric fracture which appeared to be pathological. She underwent placement of a left long intramedullary nail into the femur for surgical fixation. Pathology from the bone is awaited at this time.She was incidentally noted to have a left ovarian mass measuring 9.2 x 6.8 x 0.7 cm raising suspicion for malignancy. MRI of the pelvis was ordered but unable to be completed for several days. A transvaginal ultrasound was performed instead which redemonstrated the above mass. There was noted to be a hemorrhagic component additionally. Neoplasm was considered likely and MRI was recommended which has been ordered now as an outpatient on an urgent basis. CT of the hip upon admiss ion had raised concern for possible iliopsoas hematoma. This was further explored with dedicated CT of the abdomen on May 07, 2025 which showed hematomas of the left iliopsoas muscle, left gluteus muscle and left quadratus femoris muscle. Her hemoglobin dropped from 10.1-7.5 during the course of admission, likely related to a combination of postop blood loss plus the hematoma. Patient is a [employer] and declines blood transfusion. Added iron and folic acid and B12 supplementation at the time of discharge. Recommended to check CBC again in 1 week after discharge to ensure stability. Incidentally noted marked right hydronephrosis and right hydroureter with cortical thinning of the right kidney. Mild left hydronephrosis and hydroureter was also noted with a distended urinary bladder. Bladder scanned on subsequent days did not reveal significant retention. The right and left UV junction were poorly seen due to the uterus on the right and the ovarian mass on the left safia e. Some mesenteric stranding was noted between the transverse colon and small bowels which may represent omental caking due to malignancy. As above MRI has been ordered for outpatient. Follow-up with Dr. Chery arranged. Additionally referral provided to urology at [facility] for possible cystoscopy and cystogram. Urine analysis did not show any significant WBCs nitrate or leukocyte esterase.Blood cx negative. She has mild leukocytosis postoperatively, favored to be reactive given that otherwise no clinical signs or symptoms of infection have been found on evaluation. Pain is currently controlled. Patient is otherwise clinically stable to be discharged today. She has not been prescribed any anticoagulation for DVT prophylaxis at discharge due to discovery of the iliopsoas hematoma. This may be reconsidered in 1 week if hemoglobin shows continued stability. Physical Exam Narrative: General: No acute distress, AO x3 HEENT: PERRLA, pupils bilaterally equal and reactive, pallors not present Chest: Normal vesicular breath sounds, no added sounds, equal good air entry bilaterally CVS: S1-S2 regular, no murmurs, no tachycardia, no gallops, no rubs Abdomen: Soft, nontender, no organomegaly, bowel sounds present Neuro: No focal deficits, no facial deformity, AO x3, power 5/5 in all limbs Urinary Catheter Management: Cox: Cath Placed During This Visit: yes, but has since been removed by the nurse Reason for Continuing Indwelling Catheter: Perioperative Use in Selected Surgeries Urinary Catheter Date of Insertion: 05/03/25 Urinary Catheter Time of Insertion: 11:59 Date Urinary Catheter Removed: 05/06/25 Time Urinary Catheter Discontinued: 06:12 Discharge Data Studies Completed and Pending Completed Studies During Hospitalization Category [place] [id number] Routine Cat Scan 05/07/25 10:[address] hip LT wo con* [id number] Routine Cat Scan 05/03/25 15:21 Completed CXRP [XR chest 1V portable [id number]] Routine Exams 05/06/25 17:19 Completed XR chest 1V portable [id number] Stat Exams 05/03/25 11:26 Completed XR femur LT min 2V* [id number] Routine Exams 05/03/25 15:21 Completed XR femur LT min 2V* [id number] Routine Exams 05/04/25 14:31 Completed XR hip LT 2-3V wo/w pel* [id number] Stat Exams 05/03/25 10:53 Completed US liver [id number] Routine Ultrasound 05/06/25 15:42 Completed US pelvis lmt w transvag Routine Ultrasound 05/07/25 10:23 Completed Pending at discharge Category Date Time Status Blood Culture AM LABS Lab 05/07/25 04:34 Results Tick Panel AM LABS Lab 05/07/25 04:29 Received MR pelvis wo/w con [id number] Routine MRI 05/04/25 12:08 Stop Req Pathology: Surgical [PTH] Routine Pth 05/04/25 08:33 Received CV. echo complete* [id number] Routine Ultrasound 05/07/25 10:28 Taken Radiology Impressions Hip/Pelvis X-Ray 05/03/25 10:53 IMPRESSION: Impacted intertrochanteric fracture of the left hip with radiographic concern for underlying bone lesion and pathologic fracture. Consider follow-up CT for further characterization for possible bone lesion. Hip CT 05/03/25 15:21 IMPRESSION: 1. Acute comminuted impacted angulated intertrochanteric left femoral fracture. 2. Sclerosis of the marrow space and moth-eaten lytic appearance of the cortical margins highly suspicious for underlying infiltrative neoplastic etiology. 3. Large (9.2 x 6.8 x 0.7 cm) complex left adnexal/ovarian cystic mass, possibly a primary cystic neoplasm. Dedicated evaluation with contrast MR or sonography recommended. ADDENDUM: 05/03/252111 COMMENT: THIS REPORT CONTAINS FINDINGS THAT MAY BE CRITICAL TO PATIENT CARE. The exam findings were verbally communicated by me to Dr. Wesley via telephone conference at 9:08 PM CDT on 05/03/2025. The findings were acknowledged and understood. Femur X-Ray 05/04/25 14:31 IMPRESSION: Femur surgical hardware appears to be in place. Liver Ultrasound 05/06/25 15:42 IMPRESSION: Unremarkable duplex of the portal vein. IMPRESSION: 1. No biliary dilatation or manifestations of gallbladder disease. 2. Right kidney of atrophic size demonstrating pelvicaliectasis, possibly representing chronic sequelae of hydronephrosis or vesicoureteral reflux. Chest X-Ray 05/06/25 17:19 IMPRESSION: 1. New left base streaky linear opacities favoring atelectasis compared with recent prior chest x-ray 05/03/2025. 2. No lung consolidation appreciated. 3. No pleural effusion. 4. Mild skeletal degenerative and other chronic/non-acute findings as described above. COMMENTS: Qualitative demineralization of bones (osteopenia) limiting evaluation for nondisplaced fractures. Chest/Abdomen/Pelvis CT 05/07/25 10:23 IMPRESSION: 1. [place] to be mild dependent atelectasis. No definite consolidation. 2. Prominent calcification mitral valve annulus. 3. Mild sclerosis. 4. Degenerative changes thoracic spine. IMPRESSION: 1. Recent internal fixation and reduction comminuted intratrochanteric fracture of the left femur. 2. Hematomas left iliopsoas muscle, left gluteus muscles, and left quadratus femoris muscle. 3. Marked right hydronephrosis and right hydroureter with cortical thinning of the right kidney. Milder left hydronephrosis and hydroureter left kidney. Moderately distended urinary bladder. The right and left UV junction poorly seen due to uterus on the right and ovarian cystic lesion on the left. It is not known if there are strictures at the UV junction or this is due to chronic distension of the bladder. 4. Some mesenteric stranding between transverse colon and small bowel. This may represent some edema or inflammation. Can not entirely rule omental caking as can be associated with malignancy. 5. Mildly heterogeneous probable cystic lesion involving the left ovary. Nonemergent ultrasound recommended for further characterization. 6. Moderate amount of stool throughout colon. Correlate for symptoms of constipation. Maybe some stasis of small bowel. Pelvic/Transvag US 05/07/25 10:23 IMPRESSION: 1. O-RADS 4; intermediate risk for malignancy. MRI is pending. 2. Large complex cystic and solid mass in the LEFT adnexa. Several features within this mass suggest there is a hemorrhagic component. No vein increased vascularity is identified. In a postmenopausal female of this age neoplasm needs to be excluded and is likely. If there is a hemorrhagic component underlying mass is still a concern. MRI will help determine if there is a solid enhancing component. 3. [place] distended urinary bladder. Recommend emptying of the urinary bladder prior to MRI of the pelvis. Laboratory Results WBC 14.50 10^3/uL (3.29-11.43) H 05/07/25 04:29 RBC 2.52 10^6/uL (3.85-5.65) L 05/07/25 04:29 Hgb 7.50 g/dL (11.27-16.99) L 05/07/25 04:29 Hct 23.7 % (36-47) L 05/07/25 04:29 MCV 94.0 fl (85-98) 05/07/25 04:29 MCH 29.8 pg (27-33) 05/07/25 04: MCHC 31.6 g/dL (30-55) 05/07/25 04: RDW 12.7 % (12.1-15.1) 05/07/25 04:29 Plt Count 281 10^3/cmm (157-399) 05/07/25 04:29 MPV 10.0 fL (7.4-10.4) 05/07/25 04:29 Neut % (Auto) 78.9 % 05/07/25 04:29 Lymph % (Auto) 11.2 % 05/07/25 04:29 [place] % (Auto) 6.4 % 05/07/25 04:29 Eos % (Auto) 1.7 % 05/07/25 04:29 Baso % (Auto) 0.5 % 05/07/25 04:29 Neut # (Auto) 11.43 10^3/uL (1.8-7.7) H 05/07/25 04:29 Lymph # (Auto) 1.6 10^3/uL (0.8-4.8) 05/07/25 04:29 [place] # (Auto) 0.9 10^3/uL (0.2-0.9) 05/07/25 04:29 Eos # (Auto) 0.3 10^3/uL (0.0-0.8) 05/07/25 04:29 Baso # (Auto) 0.1 10^3/uL (0.0-0.1) 05/07/25 04:29 Nucleated RBC % (auto) 0 % 05/07/25 04:29 Nucleated RBCs # 0.0 /100WBC 05/07/25 04:29 Sodium 138 mmol/L (136-145) 05/07/25 04:29 Potassium 4.8 mmol/L (3.5-5.1) 05/07/25 04:29 Chloride 105 mmol/L (98-107) 05/07/25 04:29 Carbon Dioxide 24 mmol/L (22-29) 05/07/25 04:29 Anion Gap 13.8 (5-19) 05/07/25 04:29 BUN 22 mg/dL (8-23) 05/07/25 04:29 Creatinine 1.1 mg/dL (0.5-0.9) H 05/07/25 04:29 GFR Calculation Not Reportable 05/07/25 04:29 Glucose 118 mg/dL (65-115) H 05/07/25 04:29 Calculated Osmolality 290 mOsm/kg (285-295) 05/07/25 04:29 Calcium 8.5 mg/dL (8.5-10.5) 05/07/25 04:29 Iron 16 ug/dL (37-145) L 05/07/25 04:29 TIBC 104 mcg/dl 05/07/25 04:29 % Saturation 15.3 % (20-50) L 05/07/25 04:29 Unsat Iron Binding 88 ug/dL (112-347) L 05/07/25 04:29 Transferrin 87 mg/dL (200-360) L 05/07/25 04:29 Ferritin 672 ng/mL (15-150) H 05/07/25 04:29 Total Bilirubin 0.4 mg/dL (0.15-1.2) 05/07/25 04:29 AST 82 U/L (0-32) H 05/07/25 04:29 ALT 32 U/L (0-33) 05/07/25 04:29 Alkaline Phosphatase 363 U/L (35-105) H 05/07/25 04:29 Total Protein 5.6 g/dL (6.6-8.7) L 05/07/25 04:29 Albumin 2.7 g/dL (3.5-5.2) L 05/07/25 04:29 Globulin 2.9 g/dL (1.3-4.6) 05/07/25 04:29 Vitamin B12 588 pg/mL (232-1245) 05/07/25 04: Folate 11.0 ng/mL (4.8-37.3) 05/07/25 04:29 Urine Color Yellow (Yellow) 05/06/25 22: Urine Appearance Clear (CLEAR) 05/06/25 22:45 Urine pH 6.0 (5-7) 05/06/25 22:45 Ur Specific [place] 1.012 (1.005-1.030) 05/06/25 22: Urine Protein 1+ (Negative) A 05/06/25:45 Urine Glucose (UA) Negative (Normal) 05/06/25 22:45 Urine Ketones Negative (Negative) 05/06/25 22: Urine Blood Trace (Negative) A 05/06/25: Urine Nitrate Negative (Negative) 05/06/25: Urine Bilirubin Negative (Negative) 05/06/25 22: Urine Urobilinogen 0.2 mg/dL (Negative) 05/06/25 22:45 Ur Leukocyte Esterase Negative (Negative) 05/06/25 22: Urine RBC None /hpf (0-2) 05/06/25 22:45 Urine WBC 0-4 /hpf (0-5) H 05/06/25 22:45 Ur Squamous Epith Cells 0-4 /hpf (0-5) H 05/06/25 22:45 Amorphous Sediment Not Reportable 05/06/25 22:45 Urine Bacteria Trace /hpf (NONE) 05/06/25 22:45 Hepatitis A IgM Ab Non-reactive (Nonreactive) 05/07/25 04: Hep Bs Antigen Non-reactive (Nonreactive) 05/07/25 04: Hep Bs Antibody < 3.5 (11.5-1000) L 05/07/25 04:29 Hep B Core Total Ab Non-reactive (Nonreactive) 05/07/25 04:29 Hepatitis C Antibody Non-reactive (Nonreactive) 05/07/25 04:29 SARS-CoV-2 Ag (Rapid) Negative (Negative) 05/08/25 07:52 Vitals Last Vital Signs Temp 97.7 F 05/08/25 11:32 Pulse 92 05/08/25 13:58 Resp 18 05/08/25 13:08 BP 152/78 05/08/25 13:58 Pulse Ox 97 05/08/25 13:58 O2 Del Method Room Air 10/15/25 11:32 O2 Flow Rate 2 05/08/25 08:00 Discharge Plan Discharge Patient Disposition: Xfer SNF Condition: Stable Prescriptions: New polyethylene glycol 3350 17 gram Powder In Packet 17 g PO DAILY 30 Days Qty: 30 0RF oxycodone 5 mg Tablet 5 mg PO Q6H PRN (Reason: Moderate Pain) 5 Days Qty: 20 0RF ferrous sulfate 325 mg (65 mg iron) tablet 325 mg PO DAILY Qty: 30 0RF folic acid 1 mg tablet 1,000 mcg PO DAILY Qty: 30 0RF multivitamin with iron Tablet 1 tab PO DAILY Qty: 30 0RF Continued atorvastatin 40 mg tablet 40 mg PO DAILY Qty: 90 1RF lisinopril 2.5 mg tablet 2.5 mg PO DAILY Discharge Order = DC NOW: Discharge Order (Routine); Ordered 05/08/25 Ordered By: Pastora Garcia Other Ambulatory Orders: MR pelvis wo/w con [id number] (Routine) Timeframe: 1 Week Facility: [facility] - Location: Radiology Ordered By: Pastora Garcia Referrals: [facility] [Other] - 2 weeks Referral Note: marked right hydronephrois and hydroureter, mild left hydroneprosis, Ct without obvious extrinsicc compression or stones. We have notified your physician's clinic of the need for a follow-up appointment to be scheduled. If you have not heard from them within the next 2 business days, please call them directly. [facility] [Outside] Zheng Ramirez DO [Physician, Orthopedics] - 05/21/25 2:30 pm Cody Chery MD [Physician, HEALTH DIAGNOSTICS TEACHER] - 1 week Referral Note: ovarian mass, suspected ca We have notified your physician's clinic of the need for a follow-up appointment to be scheduled. If you have not heard from them within the next 2 business days, please call them directly. Allan Herring DO [Primary Care Provider, Family Practice] Patient Instructions: Laxative, Stool Softeners (By mouth), Oxycodone, Slow Release (By mouth), Acute Wound Care (DC), Opioid Safety, Post Anesthesia Care, Patient Portal & Mirian Instructions Activity Restrictions/Additional Instructions: You are being discharged from the hospital today during which time you have been under the care of Lisa. You had a left intertrochanteric hip fracture. You were treated for this injury with left hip nail. You may resume you normal diet (including any special diets as directed by your primary doctor) as well as your home medications. You should follow up with you primary doctor if you have any questions regarding medication you took prior to your stay in the hospital. You may take your pain medication as prescribed. After the first few days, take your pain medication as needed. Do not drive or drink alcohol while taking your pain medication. Your injury may increase your risk of developing a blood clot,or DVT, in your arm or leg. This could potentially dislodge and travel to your lungs and become a life threatening condition called apulmonary embolus,or PE. You have been prescribed Eliquis to be taken to prevent this. Frequent movement of the legs will also help prevent this from occurring. If you develop any new or worsening cough, chestpain, bloody sputum or shortness of breath, call 911 or go to the EmergencyRoom. Always keep your surgical incision/dressing clean and dry. If you experience increasing pain at your incision site, redness, swelling, increasing discharge, foul odors, or fevers (greater than 100.4), night sweats or chills you should call the office at the above number. If you feel this is an emergency you should be evaluated in the Emergency Department of a nearby hospital. Orthopedic Patient Instructions Summary: Weight Bearing: As tolerated Activity: As tolerated. Diet: Regular. Wound Care: Keep dressing clean and dry. Pain Medication: Take only as needed. Ice, rest and elevation will be of great benefit. Please plan to follow-up [facility] Dr Ramirez in 2 weeks. You will need to call the clinic [phone] to schedule this visit. Thank you far allowing me to participate in your care. Do not hesitate to call the office with any questions or concerns. Discharge Attestations Time Spent in Discharge Care*: greater than 30 min Quality Metrics Clinical Quality Measures [ No reported AMI, CVA or VTE this stay] Coding Level of Care Code Acute Code for Chg Fwd Diagnoses Fracture, intertrochanteric, left femur S72.142A Ovarian mass, left N83.8 Mixed hyperlipidemia E78.2 Hyperlipidemia type: mixed hyperlipidemia BP (high blood pressure) I10 Bilateral hydronephrosis N13.30 Iliopsoas muscle hematoma S70.10XA
[2025-05-16 21:55] LABS: RMSF IGG NOT DETECTED; RMSF IGM NOT DETECTED
== END 2025-05-08 13:58 | disposition skilled nursing facility (03) | DRG 481 ==
LOC: ER 11:45 → MEDSURG 12:53
PROVIDERS: Orthopaedic Surgery; Admitting Provider Internal Medicine; Emergency Provider Family Medicine; PCP Electrodiagnostic Medicine; Visit Provider Student in an Organized Health Care Education/Training Program
PROC: 0QS706Z Reposition Left Upper Femur with Intramedullary Internal Fixation Device, Open Approach (ICD-10-PCS; CPT 27245; principal; 2025-05-04 08:00)
DX: M84.452A Pathological fracture, left femur, initial encounter for fracture (principal); N13.30 Unspecified hydronephrosis; N13.4 Hydroureter; N83.9 Noninflammatory disorder of ovary, fallopian tube and broad ligament, unspecified; E78.2 Mixed hyperlipidemia; R03.0 Elevated blood-pressure reading, without diagnosis of hypertension; M15.9 Polyosteoarthritis, unspecified; Z80.0 Family history of malignant neoplasm of digestive organs; Z80.3 Family history of malignant neoplasm of breast
CPT/HCPCS: 36415; 51702; 71045; 71250; 73502; 73552; 73700; 74176; 76000; 76705; 76830; 76857; 77001; 80048; 80053; 81001; 81003; 82607; 82728; 82746; 83540; 83550; 84466; 85025; 86618; 86666; 86705; 86706; 86709; 86757; 86803; 87040; 87340; 87426; 88307; 88311; 88342; 93005; 93306; 96374; 96375; 96376; 97110; 97116; 97161; 97165; 97530; 97535; 99285; A4216; C1713; J0131; J0690; J0696; J1171; J2270; J2405; J2704; J3010; J7030; J7120; J9999

== ENCOUNTER 2025-05-13 11:38 | Outpatient (CLI) | payer MEDICARE, SELFPAY ==
--- NOTE | 2025-05-13 12:15 | MR_ITS ---
WS: [id number] MRI PELVIS WITH AND WITHOUT CONTRAST. COMPARISON: CT abdomen and pelvis 05/07/2025. Pelvic ultrasound 05/07/2025 Multiplanar, multisequence imaging is performed with and without contrast. Sagittal and axial T1 fat sat sequences post-MultiHance 10 cc IV. History: LEFT ovarian mass. Suspicious for malignancy. Hydronephrosis. Urinary bladder is markedly distended. No intraluminal filling defects. There is a very large complex cystic and solid mass centered in the LEFT adnexa but arises slightly superiorly from the pelvis. The entire mass measures 5.9 x 8.3 x 9.5 cm and is centered in the LEFT pelvis. There is significant mass effect upon the central pelvic structures including the uterus and the LEFT ureter and sigmoid colon. On the postcontrast imaging there is soft tissue enhancement of several of the septations running throughout the mass. The septations are irregular and some are thickened. The greatest area of enhancement is adjacent to the uterus. There is a small amount of adjacent as cites. Asymmetric wall thickening along the medial mass inseparable from the sigmoid colon. The sigmoid colon is being displaced by this mass and possible invasion. The uterus is being displaced to the RIGHT and posterior. There is an additional area of soft tissue enhancement inseparable from the RIGHT lateral uterus. This extends to the uterine body but also to the adnexa. This area of enhancement measures 2.4 x 4.0 x 3.4 cm. Abrupt termination of the RIGHT ureter as it approaches this area of soft tissue enhancement. This is probably causing the previously described high-grade RIGHT hydronephrosis. The LEFT ureter is being compressed and displaced posterior by the LEFT adnexal mass. Obstruction of the LEFT ureter is most likely from the mass compression. Identified are recent postoperative changes involving the LEFT hip arthroplasty. There is soft tissue edema in the muscles and soft tissues of the pelvis greatest on the LEFT. Previously described hematoma is improving. No destructive bone lesions. MR/MR pelvis wo/w con [id number] IMPRESSION: 1. O-RADS 5; high risk for malignancy. Recommend evaluation by FOOD QUALITY TESTER oncologist. Large LEFT adnexal/ovarian mass measures 5.9 x 8.3 x 9.5 cm. Cystic and solid components within this mass with thick irregular septations highly suspicious f or an ovarian neoplasm. 2. Uterus is being displaced and deformed posterior and to the RIGHT. 3. There is a soft tissue mass with enhancement in the RIGHT adnexa abutting t he uterus. At the site of this soft tissue enhancement there is an abrupt termi nation of the distal RIGHT ureter with hydronephrosis. Irregular soft tissue en hancement in the RIGHT adnexa measures 2.4 x 4.0 x 3.4 cm and is highly suspici ous for metastatic deposit. 4. High-grade LEFT hydronephrosis is secondary to compressive forces of the di stal LEFT ureter. 5. Asymmetric wall thickening of the LEFT adnexal mass is inseparable from the sigmoid colon. Possible invasion into the sigmoid colon. No obstructive patter n. 6. Very small amount of ascites.
== END 2025-05-13 11:39 | disposition home or self-care (01) ==
LOC: RAD 11:41
PROVIDERS: PCP Electrodiagnostic Medicine; Visit Provider Student in an Organized Health Care Education/Training Program
DX: N83.8 Other noninflammatory disorders of ovary, fallopian tube and broad ligament (principal); Q62.62 Displacement of ureter; N13.30 Unspecified hydronephrosis; R18.8 Other ascites
CPT/HCPCS: 72197

== ENCOUNTER → 2025-05-21 14:57 | Outpatient (BNVA) | payer MEDICARE, SELFPAY | PROVIDERS: PCP Electrodiagnostic Medicine; Visit Provider Orthopaedic Surgery | DX: Z98.890 Other specified postprocedural states (principal) | CPT/HCPCS: 73552; 99024 ==